=== PATIENT | female | born 1935 | race American Indian/Alaskan Native ===

== ENCOUNTER 2016-06-10 19:20 | Inpatient (IN) | payer MEDICARE, OTHER ==
[2016-06-06 19:28] VITALS: BMI 25.2
--- NOTE | 2016-06-10 21:00 | CP.PCM.HP ---
History of Present Illness - History of Present Illness History of Present Illness: CC: falls, gait abnomrality HPI: 80 year old female with PMH CVA, HTN, DMII, hypothyroidism, diverticulitis who is being admitted to acute rehab for frequent falls, and LLE weakness; LLE weakness has been chronic after CVA last year. She was admitted to [facility] 4 days ago for L leg weakness, after she had a fall in her bathtub. No head trauma, no LOC.. She had been having increased difficulty in walking as well falls for the past several weeks. She did not have any new focal neuro deficits. CT showed old infarcts, but no acute intracranial abnormality. Hematology oncology was also consulted for 2 lytic lesions incidentally found on Chest CT- metastatic disease ruled out with MRI and bone scans. Pt was also given Rocephin for UTI. Pt for acute rehab for further PT OT. Patient has no c/ c today. 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 4/5 LUE. Psych: normal mood, normal affect Present on Admission - Present on Admission Any Indicators Present on Admission: No Past Patient History - Infectious Disease Hx of Infectious Diseases: None - Tetanus Immunizations Tetanus Immunization: Unknown - Past Medical History & Family History Past Medical History?: Yes - Past Social History Smoking Status: Former Smoker - CARDIAC Hx Hypertension: Yes - PULMONARY Hx Respiratory Disorders: No - NEUROLOGICAL HX Cerebrovascular Accident: Yes - HEENT Other/Comment: Reading glasses - RENAL Hx Chronic Kidney Disease: No - ENDOCRINE/METABOLIC Hx Diabetes Mellitus Type 2: Yes Hx Hypothyroidism: Yes - HEMATOLOGICAL/ONCOLOGICAL Hx Blood Transfusions: No Hx Blood Transfusion Reaction: No - INTEGUMENTARY Hx Dermatological Problems: No - MUSCULOSKELETAL/RHEUMATOLOGICAL Hx Musculoskeletal Disorders: No Hx Falls: Yes - GASTROINTESTINAL Hx Gastrointestinal Disorders: Yes Hx Diverticulitis: Yes (diverticulosis) Other/Comment: bezoid - GENITOURINARY/GYNECOLOGICAL Hx Genitourinary Disorders: No - PSYCHIATRIC Hx Psychophysiologic Disorder: No Hx Substance Use: No - SURGICAL HISTORY Hx Surgeries: Yes - ANESTHESIA Hx Anesthesia: Yes Hx Anesthesia Reactions: No Hx Malignant Hyperthermia: No Meds Allergies/Adverse Reactions: Allergies Allergy/AdvReac Type Severity Reaction Status Date / Time lansoprazole [From Prevacid] Allergy RASH Verified 10/08/15 15:49 omeprazole Allergy URTICARIA Verified 10/08/15 15:49 Results - Imaging and Cardiology CT scan - chest Status: Report reviewed by me (Chest CT 06/07/16 : centrilobular emphysema, two partially imaged lytic lesions noted within the right scapula/glenoid, grossly stable, small hiatal hernia, nonobstructing tiny bilateral renal calculi) MRI - abdomen Status: Report reviewed by me (MRI shoulder w/o contrast 06/08/16 well circumscribed cystic lesion in the bony glenoid. 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 Specifically no nuclear medicine correlate to findings on recent cross- sectional imaging studies. ) Assessment & Plan (1) Frequent falls Assessment and Plan: This is a 80 y/o female with multiple chronic conditions and chronic LLE weakness from prior CVA which appears to be resulting in weakness and gait abnormality. Frequent falls/gait abn/ S/P CVA last year -- no acut CVA, chronic weakness from prior CVA Aggrenox 1 tab PO BID for Plavix pt was getting in [place] Neuro consult Dr. Ivone De Jesus Statin for stroke prevention Simvastatin 20 mg po daily PT/OT consult UTI Urine Cultures + EColi sensitive to Cipro during admission Cipro PO for 9 more days Hypertension Continue Nifedipine 30 mg po daily Continue Enalapril 5 mg po daily Diabetes Mellitus Continue Repaglinide 2 mg PO TID Continue Metformin 1000 mg PO BID Accuchecks ACHS, SSI Diabetic 2 mg Na diet Hypothyroidism Continue levothyroixine 25 mcg PO daily Dementia? Parkinsons? Continue Amatadine 100 mg PO BID Continue Primidone 50 mg po HS DVT PPx -- SQ Lovenox Status: Acute (2) CVA (cerebral vascular accident) Status: Acute (3) DM2 (diabetes mellitus, type 2) Status: Chronic (4) HTN (hypertension) Status: Chronic (5) Hypothyroid Status: Chronic (6) Dementia Status: Acute (7) DVT prophylaxis Status: Acute
[2016-06-10] MEDS: Insulin Lispro (humaLOG) 100 Units/ml Inj SC SCH (22:55)
[2016-06-11] MEDS: Levothyroxine 25 MCG TAB PO SCH (06:19)
[2016-06-11] MEDS: Insulin Lispro (humaLOG) 100 Units/ml Inj SC SCH ×4 (06:41→21:33)
[2016-06-11] MEDS: Lactobacillus Acidophilus 500 MU Cap PO SCH ×2 (10:04→16:58)
[2016-06-11] MEDS: Enoxaparin 40 mg Syringe SC SCH (10:06)
[2016-06-11] MEDS: Calcium-Vit D 250 mg-125 Units Tab UD PO SCH (10:07)
[2016-06-11] MEDS: NIFEdipine 30 mg ER Tab PO SCH (10:08)
--- NOTE | 2016-06-11 13:45 | PSY.TMCNF ---
Nursing - Vital Signs Vital Signs (Last 8 hours): Vital Signs 06/11/16 06/11/16 06/11/16 10:00 10:08 10:09 Temperature 97.5 F L Pulse Rate 65 65 65 Respiratory 22 Rate Blood Pressure 137/51 L 137/51 L 137/51 L O2 Sat by Pulse 97 Oximetry 06/11/16 12:20 Temperature 97.5 F L Pulse Rate 65 Respiratory 22 Rate Blood Pressure 137/51 L O2 Sat by Pulse Oximetry Pain: 0 - Precautions: Precautions: Fall Prevention - Medications/Other Issues Comment: n/v - Consults Comment: Dr. Pimentel - Toileting Toileting: Dependent - Bladder Management Bladder Pattern: Incontinent Voiding Method: Bedpan - Bowel Management Bowel Pattern: Constipated Bowel Management: Moderate Assistance - Transfers Transfers: Moderate Assistance - ADL's ADL's: Moderate Assistance - Pain Management Comments: Denies pain - Patient/Family Teaching Comments: Safety - Goals/Time Frame Comments: Per IPOC Physical Therapy - Bed Mobility Bed Mobility: Not Tested - Pain Management Techniques: Inactivity Occupational Therapy - Arousal/Attention/Orientation Patient Orientation: Person, Place, Time, Appropriate to Age, Appropriate to Situation - ADL/IADL Self Feeding: Supervision Grooming: Supervision Dressing-Lower Extremity: Maximum Assistance - Pain Alleviating Techniques: Inactivity Nutrition - Current Diet Current Diet/ Supplement/ Feedings: Moderate consistent CHO, 2 gm Na diet - Appetite Percent Meal Consumed: Less than 25% - Comments Comments: Safety - Assessment/Goals/Time Frame Assessment/Goals/Time Frame: n/v - Provider Provider: Chey Urban MS, RD Rehabilitation Plan - Discharge Plan Discharge to: Home (supportive family)
--- NOTE | 2016-06-11 13:46 | CP.PCM.CON ---
History of Present Illness - History of Present Illness History of Present Illness: Dr Pimentel PMR consultation on Hermelinda Prasad, born 1935, who has been admitted again to [facility] for acute inpatient rehabilitation. [place] [facility] [place] Review of Systems - Constitutional Constitutional: Fatigue. absent: Chills, Excessive Sweating - Cardiovascular Cardiovascular: absent: Chest Pain at Rest - Respiratory Respiratory: absent: Hemoptysis, Dyspnea on Exertion - Gastrointestinal Gastrointestinal: absent: Bloating - Integumentary Integumentary: absent: Bleeding Lesions - Neurological Neurological: absent: Abnormal Movements, Abnormal Speech, Convulsions - Psychiatric Psychiatric: Anxiety Past Patient History - Infectious Disease Hx of Infectious Diseases: None - Tetanus Immunizations Tetanus Immunization: Unknown - Past Medical History & Family History Past Medical History?: Yes - Past Social History Smoking Status: Former Smoker Home Situation {Lives}: Alone (daughter lives in the building) - CARDIAC Hx Hypertension: Yes - PULMONARY Hx Respiratory Disorders: No - NEUROLOGICAL HX Cerebrovascular Accident: Yes - HEENT Other/Comment: Reading glasses - RENAL Hx Chronic Kidney Disease: No - ENDOCRINE/METABOLIC Hx Diabetes Mellitus Type 2: Yes Hx Hypothyroidism: Yes - HEMATOLOGICAL/ONCOLOGICAL Hx Blood Transfusions: No Hx Blood Transfusion Reaction: No - INTEGUMENTARY Hx Dermatological Problems: No - MUSCULOSKELETAL/RHEUMATOLOGICAL Hx Musculoskeletal Disorders: No Hx Falls: Yes - GASTROINTESTINAL Hx Gastrointestinal Disorders: Yes Hx Diverticulitis: Yes (diverticulosis) Other/Comment: bezoid - GENITOURINARY/GYNECOLOGICAL Hx Genitourinary Disorders: No - PSYCHIATRIC Hx Psychophysiologic Disorder: No Hx Substance Use: No - SURGICAL HISTORY Hx Surgeries: Yes - ANESTHESIA Hx Anesthesia: Yes Hx Anesthesia Reactions: No Hx Malignant Hyperthermia: No Meds Allergies/Adverse Reactions: Allergies Allergy/AdvReac Type Severity Reaction Status Date / Time lansoprazole [From Prevacid] Allergy RASH Verified 10/08/15 15:49 omeprazole Allergy URTICARIA Verified 10/08/15 15:49 - Medications Medications: Current Medications Amantadine HCl (Amantadine 100 Mg Cap) 100 mg PO BID [facility] Last Admin: 06/11/16 10:05 Dose: 100 mg Atorvastatin Calcium (Lipitor) 10 mg PO HS [facility] Calcium/Vitamin D (Oscal-D 250 Mg-125 Units Tab) 2 tab PO DAILY [facility] Last Admin: 06/11/16 10:07 Dose: 2 tab Ciprofloxacin (Cipro) 500 mg PO Q12@0900,2100 [facility] Last Admin: 06/11/16 10:05 Dose: 500 mg Clopidogrel Bisulfate (Plavix) 75 mg PO DAILY [facility] Last Admin: 06/11/16 10:08 Dose: 75 mg Docusate Sodium (Colace) 100 mg PO BID [facility] Last Admin: 06/11/16 10:05 Dose: 100 mg Enoxaparin Sodium (Lovenox) 40 mg SC DAILY [facility] PRN Reason: Protocol Last Admin: 06/11/16 10:06 Dose: 40 mg Insulin Human Lispro (Humalog) 0 units SC [facility] PRN Reason: Protocol Last Admin: 06/11/16 12:40 Dose: 1 unit Lactobacillus Acidophilus (Bacid Acidophilus) 1 cap PO BID [facility] Last Admin: 06/11/16 10:04 Dose: 1 cap Levothyroxine Sodium (Synthroid) 25 mcg PO DAILY@0630 [facility] Last Admin: 06/11/16 06:19 Dose: 25 mcg Lisinopril (Zestril) 20 mg PO DAILY [facility] Last Admin: 06/11/16 10:09 Dose: 20 mg Metformin HCl (Glucophage) 1,000 mg PO BID [facility] Last Admin: 06/11/16 10:06 Dose: 1,000 mg Nifedipine (Procardia Xl) 30 mg PO DAILY [facility] Last Admin: 06/11/16 10:08 Dose: 30 mg Ondansetron HCl (Zofran Tab) 4 mg PO Q6 PRN PRN Reason: Nausea/Vomiting Last Admin: 06/11/16 06:40 Dose: 4 mg Primidone (Mysoline) 50 mg PO HS [facility] Last Admin: 06/10/16 22:53 Dose: 50 mg Repaglinide (Prandin) 2 mg PO DIN [facility] Physical Exam - Constitutional Appears: Non-toxic, No Acute Distress - Head Exam Head Exam: ATRAUMATIC, NORMAL INSPECTION, NORMOCEPHALIC - Eye Exam Eye Exam: EOMI, Normal appearance - ENT Exam ENT Exam: Mucous Membranes Moist - Respiratory Exam Respiratory Exam: NORMAL BREATHING PATTERN - GI/Abdominal Exam GI & Abdominal Exam: absent: Distended Results - Vital Signs Recent Vital Signs: Last Vital Signs Temp 97.5 F L 06/11/16 12:20 Pulse 65 06/11/16 12:20 Resp 22 06/11/16 12:20 BP 137/51 L 06/11/16 12:20 Pulse Ox 97 06/11/16 10:00 - Labs Labs: Laboratory Results - last 24 hr 06/11/16 06/11/16 06:07 12:05 POC Glucose (mg/dL) 108 165 H Assessment & Plan - Assessment and Plan (Free Text) Assessment: Patient with left AFO some left shoulder pain mild restricted ROM baseline had been ambulating with an assistive device now with combination of fear and decreased gait will need PT/OT and rec to help increase functional independence impairment code 16
--- NOTE | 2016-06-11 14:32 | CP.PCM.PN ---
Subjective - Date & Time of Evaluation Date of Evaluation: 06/11/16 Time of Evaluation: 14:31 - Subjective Subjective: debility Objective - Vital Signs/Intake and Output Vital Signs (last 24 hours): Temp Pulse Resp BP Pulse Ox 97.5 F L 65 22 137/51 L 97 06/11/16 12:20 06/11/16 12:20 06/11/16 12:20 06/11/16 12:20 06/11/16 10:00 - Medications Medications: Current Medications Amantadine HCl (Amantadine 100 Mg Cap) 100 mg PO BID [facility] Last Admin: 06/11/16 10:05 Dose: 100 mg Atorvastatin Calcium (Lipitor) 10 mg PO [facility] Calcium/Vitamin D (Oscal-D 250 Mg-125 Units Tab) 2 tab PO DAILY [facility] Last Admin: 06/11/16 10:07 Dose: 2 tab Ciprofloxacin (Cipro) 500 mg PO Q12@0900,2100 [facility] Last Admin: 06/11/16 10:05 Dose: 500 mg Clopidogrel Bisulfate (Plavix) 75 mg PO DAILY [facility] Last Admin: 06/11/16 10:08 Dose: 75 mg Docusate Sodium (Colace) 100 mg PO BID [facility] Last Admin: 06/11/16 10:05 Dose: 100 mg Enoxaparin Sodium (Lovenox) 40 mg SC DAILY [facility] PRN Reason: Protocol Last Admin: 06/11/16 10:06 Dose: 40 mg Insulin Human Lispro (Humalog) 0 units SC ACHS [facility] PRN Reason: Protocol Last Admin: 06/11/16 12:40 Dose: 1 unit Lactobacillus Acidophilus (Bacid Acidophilus) 1 cap PO BID [facility] Last Admin: 06/11/16 10:04 Dose: 1 cap Levothyroxine Sodium (Synthroid) 25 mcg PO DAILY@0630 [facility] Last Admin: 06/11/16 06:19 Dose: 25 mcg Lisinopril (Zestril) 20 mg PO DAILY [facility] Last Admin: 06/11/16 10:09 Dose: 20 mg Metformin HCl (Glucophage) 1,000 mg PO BID [facility] Last Admin: 06/11/16 10:06 Dose: 1,000 mg Nifedipine (Procardia Xl) 30 mg PO DAILY [facility] Last Admin: 06/11/16 10:08 Dose: 30 mg Ondansetron HCl (Zofran Tab) 4 mg PO Q6 PRN PRN Reason: Nausea/Vomiting Last Admin: 06/11/16 06:40 Dose: 4 mg Primidone (Mysoline) 50 mg PO HS [facility] Last Admin: 06/10/16 22:53 Dose: 50 mg Repaglinide (Prandin) 2 mg PO DIN [facility] Overall Plan of Care - Overall Plan of Care Rehab Impairment: Mobility, Gait, Balance, Coordination Etiologic Diagnosis: Cerebrovascular Accident Rehab/Medical Prognosis: Fair - Anticipated Interventions Physical Therapy:: Yes Occupational Therapy:: Yes Speech Therapy:: No Recreational Therapy:: Yes - Therapy Goals Bed Mobility: Contact Guard Ambulation: Contact Guard Functional Positional Changes:: Contact Guard - Discharge Plan Identification of Barriers to Discharge: Home Situation Discharge Destination: Home
[2016-06-12] MEDS: Levothyroxine 25 MCG TAB PO SCH (07:00)
[2016-06-12] MEDS: Insulin Lispro (humaLOG) 100 Units/ml Inj SC SCH ×3 (07:03→17:49)
[2016-06-12 07:18] LABS: HEMATOCRIT 31.6 % (34.0-47.0); MEAN CELL VOLUME 77.6 fl (81.0-99.0); MEAN CORPUSCULAR HEMOGLOBIN 24.8 pg (27.0-31.0); MEAN CORPUSCULAR HGB CONC 31.9 g/dL (33.0-37.0); RED CELL DISTRIBUTION WIDTH 16.2 % (11.5-14.5); WHITE BLOOD COUNT 7.3 K/uL (4.8-10.8)
[2016-06-12] MEDS: Lactobacillus Acidophilus 500 MU Cap PO SCH ×2 (09:01→17:50)
[2016-06-12] MEDS: Enoxaparin 40 mg Syringe SC SCH (09:03)
[2016-06-12] MEDS: Calcium-Vit D 250 mg-125 Units Tab UD PO SCH (09:03)
[2016-06-12] MEDS: NIFEdipine 30 mg ER Tab PO SCH (09:04)
--- NOTE | 2016-06-12 11:41 | CP.PCM.PN ---
Subjective - Date & Time of Evaluation Date of Evaluation: 06/12/16 Time of Evaluation: 15:07 - Subjective Subjective: pt tolerating PT well +nausea and vomiting patient to stop cipro and start rocephin no urinary sx no cp no dyspnea vss nad Objective - Vital Signs/Intake and Output Vital Signs (last 24 hours): Temp Pulse Resp BP Pulse Ox 98.0 F 69 19 142/66 96 06/12/16 08:42 06/12/16 09:04 06/12/16 08:42 06/12/16 09:04 06/12/16 08:42 GEN: WDWN, alert, cooperative HEENT: NCAT, PERRL, EOMI Neck: supple, no lymphadenopathy CARDIO: +S1S2, RRR, NO M/R/G LUNG: CTAB, NO W/R/R ABD: soft, NT, ND, no masses, no HSM EXT: no edema, pedal pulses Neuro: AAOx3, L sided weakness 3-/5 of LLE. 4/5 LUE. Psych: normal mood, normal affect - Medications Medications: Current Medications Amantadine HCl (Amantadine 100 Mg Cap) 100 mg PO BID [facility] Last Admin: 06/12/16 09:01 Dose: 100 mg Atorvastatin Calcium (Lipitor) 10 mg PO HS [facility] Last Admin: 06/11/16 21:33 Dose: 10 mg Calcium/Vitamin D (Oscal-D 250 Mg-125 Units Tab) 2 tab PO DAILY [facility] Last Admin: 06/12/16 09:03 Dose: 2 tab Clopidogrel Bisulfate (Plavix) 75 mg PO DAILY [facility] Last Admin: 06/12/16 09:04 Dose: 75 mg Docusate Sodium (Colace) 100 mg PO BID [facility] Last Admin: 06/12/16 09:02 Dose: 100 mg Enoxaparin Sodium (Lovenox) 40 mg SC DAILY [facility] PRN Reason: Protocol Last Admin: 06/12/16 09:03 Dose: 40 mg Ceftriaxone Sodium 1,000 mg/ (PED IV SYRINGE) 0 mls @ 100 mls/hr IVPB DAILY [facility] Insulin Human Lispro (Humalog) 0 units SC 0630,1630 [facility] PRN Reason: Protocol Lactobacillus Acidophilus (Bacid Acidophilus) 1 cap PO BID [facility] Last Admin: 06/12/16 09:01 Dose: 1 cap Levothyroxine Sodium (Synthroid) 25 mcg PO DAILY@0630 [facility] Last Admin: 06/12/16 07:00 Dose: 25 mcg Lisinopril (Zestril) 20 mg PO DAILY [facility] Last Admin: 06/12/16 09:04 Dose: 20 mg Metformin HCl (Glucophage) 1,000 mg PO BID [facility] Last Admin: 06/12/16 09:03 Dose: 1,000 mg Nifedipine (Procardia Xl) 30 mg PO DAILY [facility] Last Admin: 06/12/16 09:04 Dose: 30 mg Ondansetron HCl (Zofran Tab) 4 mg PO Q6 PRN PRN Reason: Nausea/Vomiting Last Admin: 06/12/16 09:04 Dose: 4 mg Primidone (Mysoline) 50 mg PO HS [facility] Last Admin: 06/11/16 21:33 Dose: 50 mg Repaglinide (Prandin) 2 mg PO DIN [facility] Last Admin: 06/11/16 16:59 Dose: 2 mg - Labs Labs: 06/12/16 07:02 Assessment and Plan - Assessment and Plan (Free Text) Assessment: This is a 80 y/o female with multiple chronic conditions and chronic LLE weakness from prior CVA which appears to be resulting in weakness and gait abnormality. Frequent falls/gait abn/ S/P CVA last year -- no acut CVA, chronic weakness from prior CVA cont current management Aggrenox 1 tab PO BID for Plavix pt was getting in [place] Neuro consult Dr. Ivone De Jesus Statin for stroke prevention Simvastatin 20 mg po daily PT/OT consult UTI Urine Cultures + EColi sensitive to Cipro during admission Cipro PO for 9 more days-- CHANGE TO ROCEPHIN 5 DAYS Hypertension Continue Nifedipine 30 mg po daily Continue Enalapril 5 mg po daily Diabetes Mellitus Continue Repaglinide 2 mg PO TID Continue Metformin 1000 mg PO BID Accuchecks ACHS, SSI Diabetic 2 mg Na diet Hypothyroidism Continue levothyroixine 25 mcg PO daily Dementia? Parkinsons? Continue Amatadine 100 mg PO BID Continue Primidone 50 mg po HS DVT PPx -- SQ Lovenox
[2016-06-12] MEDS ORDERED: cefTRIAXone (Rocephin) 1 gm Inj IM ONE (17:37)
[2016-06-13] MEDS: Insulin Lispro (humaLOG) 100 Units/ml Inj SC SCH ×2 (06:54→17:14)
[2016-06-13] MEDS: Levothyroxine 25 MCG TAB PO SCH (06:54)
[2016-06-13] MEDS: Lactobacillus Acidophilus 500 MU Cap PO SCH ×2 (08:27→17:58)
[2016-06-13] MEDS: Enoxaparin 40 mg Syringe SC SCH (08:28)
[2016-06-13] MEDS: Calcium-Vit D 250 mg-125 Units Tab UD PO SCH (08:29)
[2016-06-13] MEDS: NIFEdipine 30 mg ER Tab PO SCH (08:29)
[2016-06-13] MEDS ORDERED: cefTRIAXone (Rocephin) 1 gm Inj IM SCH (09:00)
[2016-06-14] MEDS: Insulin Lispro (humaLOG) 100 Units/ml Inj SC SCH ×2 (06:30→16:39)
[2016-06-14] MEDS: Levothyroxine 25 MCG TAB PO SCH (07:06)
--- NOTE | 2016-06-14 08:01 | CP.PCM.CON ---
History of Present Illness - History of Present Illness History of Present Illness: pt is a 80 year old female admitted to [facility] and referred to the grant writer for [facility]. Med history postive for a fall, and CVA's in the past. See medical record for additional medical history and medications. Social History: pt lives in a two family home with her daughter upstairs. She was for 50+ years and then . She had ten children. One and she reported positive relationships with children remaining and grandchildren. Children assist with cleaning, cooking and shopping. Ed.Voc: pt raised in [place], pt graduated HS. 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 Pt denied a psych history and is negative for a history of alc/sub abuse. Pt spoke of attending a senior club and adventism prior to admission though struggleing with depression and dysphoria due to multiple losses of friends and restrction in lifestyle. Strategies introduced to reduce distress/depression. MSE: pt alert, oriented x2, relevant/coherent, no psychosis, affect constricted , mood dysphoric, no si no hi ideation. Dx: Dysthymia Plan: Continued Supportive therapy Past Patient History - Infectious Disease Hx of Infectious Diseases: None - Tetanus Immunizations Tetanus Immunization: Unknown - Past Medical History & Family History Past Medical History?: Yes - Past Social History Smoking Status: Former Smoker Home Situation {Lives}: Alone (daughter lives in the building) - CARDIAC Hx Hypertension: Yes - PULMONARY Hx Respiratory Disorders: No - NEUROLOGICAL HX Cerebrovascular Accident: Yes - HEENT Other/Comment: Reading glasses - RENAL Hx Chronic Kidney Disease: No - ENDOCRINE/METABOLIC Hx Diabetes Mellitus Type 2: Yes - HEMATOLOGICAL/ONCOLOGICAL Hx Blood Transfusions: No Hx Blood Transfusion Reaction: No - INTEGUMENTARY Hx Dermatological Problems: No - MUSCULOSKELETAL/RHEUMATOLOGICAL Hx Musculoskeletal Disorders: No Hx Falls: Yes - GASTROINTESTINAL Hx Gastrointestinal Disorders: Yes Hx Diverticulitis: Yes (diverticulosis) Other/Comment: bezoid - GENITOURINARY/GYNECOLOGICAL Hx Genitourinary Disorders: No - PSYCHIATRIC Hx Psychophysiologic Disorder: No Hx Substance Use: No - SURGICAL HISTORY Hx Surgeries: Yes - ANESTHESIA Hx Anesthesia: Yes Hx Anesthesia Reactions: No Hx Malignant Hyperthermia: No Meds Allergies/Adverse Reactions: Allergies Allergy/AdvReac Type Severity Reaction Status Date / Time lansoprazole [From Prevacid] Allergy RASH Verified 10/08/15 15:49 omeprazole Allergy URTICARIA Verified 10/08/15 15:49 - Medications Medications: Current Medications Amantadine HCl (Amantadine 100 Mg Cap) 100 mg PO BID [facility] Last Admin: 06/13/16 17:58 Dose: 100 mg Atorvastatin Calcium (Lipitor) 10 mg PO HS [facility] Last Admin: 06/13/16 22:56 Dose: 10 mg Calcium/Vitamin D (Oscal-D 250 Mg-125 Units Tab) 2 tab PO DAILY [facility] Last Admin: 06/13/16 08:29 Dose: 2 tab Clopidogrel Bisulfate (Plavix) 75 mg PO DAILY [facility] Last Admin: 06/13/16 08:28 Dose: 75 mg Docusate Sodium (Colace) 100 mg PO BID [facility] Last Admin: 06/13/16 17:09 Dose: 100 mg Enoxaparin Sodium (Lovenox) 40 mg SC DAILY [facility] PRN Reason: Protocol Last Admin: 06/13/16 08:28 Dose: 40 mg Ceftriaxone Sodium 1 gm/ (Sodium Chloride) 100 mls @ 100 mls/hr IVPB 1900 [facility] Stop: 06/18/16 19:01 Last Admin: 06/13/16 19:02 Dose: 100 mls/hr Insulin Human Lispro (Humalog) 0 units SC 0630,1630 [facility] PRN Reason: Protocol Last Admin: 06/14/16 06:30 Dose: Not Given Lactobacillus Acidophilus (Bacid Acidophilus) 1 cap PO BID [facility] Last Admin: 06/13/16 17:58 Dose: 1 cap Levothyroxine Sodium (Synthroid) 25 mcg PO DAILY@0630 [facility] Last Admin: 06/14/16 07:06 Dose: 25 mcg Lisinopril (Zestril) 20 mg PO DAILY [facility] Last Admin: 06/13/16 08:29 Dose: 20 mg Metformin HCl (Glucophage) 1,000 mg PO BID [facility] Last Admin: 06/13/16 17:08 Dose: 1,000 mg Metoclopramide HCl (Reglan) 10 mg IVP Q6 PRN PRN Reason: Nausea/Vomiting Last Admin: 06/13/16 11:00 Dose: 10 mg Nifedipine (Procardia Xl) 30 mg PO DAILY [facility] Last Admin: 06/13/16 08:29 Dose: 30 mg Ondansetron HCl (Zofran Tab) 4 mg PO Q6 PRN PRN Reason: Nausea/Vomiting Last Admin: 06/13/16 08:29 Dose: 4 mg Primidone (Mysoline) 50 mg PO HS [facility] Last Admin: 06/13/16 22:56 Dose: 50 mg Repaglinide (Prandin) 2 mg PO DIN [facility] Last Admin: 06/13/16 17:08 Dose: 2 mg Results - Vital Signs Recent Vital Signs: Last Vital Signs Temp 97.5 F L 06/13/16 19:57 Pulse 71 06/13/16 19:57 Resp 20 06/13/16 19:57 BP 145/63 06/13/16 19:57 Pulse Ox 94 L 06/13/16 19:57 - Labs Result Diagrams: 06/12/16 07:02 Labs: Laboratory Results - last 24 hr 06/13/16 06/13/16 06/13/16 11:54 15:51 20:54 POC Glucose (mg/dL) 137 H 182 H 110 06/14/16 06:09 POC Glucose (mg/dL) 73
[2016-06-14] MEDS: Enoxaparin 40 mg Syringe SC SCH (08:47)
[2016-06-14] MEDS: Calcium-Vit D 250 mg-125 Units Tab UD PO SCH (08:48)
[2016-06-14] MEDS: Lactobacillus Acidophilus 500 MU Cap PO SCH ×2 (08:50→18:14)
[2016-06-14] MEDS: NIFEdipine 30 mg ER Tab PO SCH (10:00)
--- NOTE | 2016-06-14 11:07 | CP.PCM.PN ---
Subjective - Date & Time of Evaluation Date of Evaluation: 06/14/16 Time of Evaluation: 10:00 - Subjective Subjective: Pt seen and examined. Complained of nausea and vomiting since 4 days ago. Thought that new medications might be the culprit since one of them is making her really weak and tired. Objective - Vital Signs/Intake and Output Vital Signs (last 24 hours): Temp Pulse Resp BP Pulse Ox 97.5 F L 86 20 150/70 94 L 06/13/16 19:57 06/14/16 10:00 06/13/16 19:57 06/14/16 10:00 06/13/16 19:57 - Medications Medications: Current Medications Amantadine HCl (Amantadine 100 Mg Cap) 100 mg PO BID [facility] Last Admin: 06/14/16 08:47 Dose: 100 mg Atorvastatin Calcium (Lipitor) 10 mg PO HS [facility] Last Admin: 06/13/16 22:56 Dose: 10 mg Calcium/Vitamin D (Oscal-D 250 Mg-125 Units Tab) 2 tab PO DAILY [facility] Last Admin: 06/14/16 08:48 Dose: 2 tab Clopidogrel Bisulfate (Plavix) 75 mg PO DAILY [facility] Last Admin: 06/14/16 08:50 Dose: 75 mg Docusate Sodium (Colace) 100 mg PO BID [facility] Last Admin: 06/14/16 08:47 Dose: 100 mg Enoxaparin Sodium (Lovenox) 40 mg SC DAILY [facility] PRN Reason: Protocol Last Admin: 06/14/16 08:47 Dose: 40 mg Ceftriaxone Sodium 1 gm/ (Sodium Chloride) 100 mls @ 100 mls/hr IVPB 1900 [facility] Stop: 06/18/16 19:01 Last Admin: 06/13/16 19:02 Dose: 100 mls/hr Insulin Human Lispro (Humalog) 0 units SC 0630,1630 [facility] PRN Reason: Protocol Last Admin: 06/14/16 06:30 Dose: Not Given Lactobacillus Acidophilus (Bacid Acidophilus) 1 cap PO BID [facility] Last Admin: 06/14/16 08:50 Dose: 1 cap Levothyroxine Sodium (Synthroid) 25 mcg PO DAILY@0630 [facility] Last Admin: 06/14/16 07:06 Dose: 25 mcg Lisinopril (Zestril) 20 mg PO DAILY [facility] Last Admin: 06/14/16 08:46 Dose: 20 mg Metformin HCl (Glucophage) 1,000 mg PO BID [facility] Last Admin: 06/14/16 08:47 Dose: 1,000 mg Metoclopramide HCl (Reglan) 10 mg IVP Q6 PRN PRN Reason: Nausea/Vomiting Last Admin: 06/14/16 10:19 Dose: 10 mg Nifedipine (Procardia Xl) 30 mg PO DAILY [facility] Last Admin: 06/14/16 10:00 Dose: 30 mg Ondansetron HCl (Zofran Tab) 4 mg PO Q6 PRN PRN Reason: Nausea/Vomiting Last Admin: 06/14/16 08:23 Dose: 4 mg Repaglinide (Prandin) 2 mg PO DIN [facility] Last Admin: 06/13/16 17:08 Dose: 2 mg - Labs Labs: 06/12/16 07:02 - Constitutional Appears: No Acute Distress - Head Exam Head Exam: ATRAUMATIC - Eye Exam Eye Exam: Normal appearance - ENT Exam ENT Exam: Mucous Membranes Moist - Neck Exam Neck Exam: absent: Meningismus - Respiratory Exam Respiratory Exam: absent: Rhonchi, Wheezes, Respiratory Distress - Cardiovascular Exam Cardiovascular Exam: REGULAR RHYTHM, +S1, +S2 - GI/Abdominal Exam GI & Abdominal Exam: Soft. absent: Tenderness - Rectal Exam Rectal Exam: Deferred - Neurological Exam Neurological Exam: Alert, Oriented x3 - Psychiatric Exam Psychiatric exam: Normal Affect - Skin Skin Exam: Dry, Intact Assessment and Plan - Assessment and Plan (Free Text) Assessment: 80 yo female with history of DM2, Hypothyroidism, HTN and previous CVA with chronic LLE weakness admitted at [facility] because of a fall in the bathtub. 1. S/P CVA with chronic LLE and frequent falls continue PT/OT on Plavix, Lipitor and BP medications 2. UTI Urine Cultures positive for EColi (06/07/2016) sensitive to Cipro Cipro switched to Rocephin on 06/12 although the VIN of Cipro is much lower than Rocephin will continue with Rocephin until 06/16 since it is not a good idea to switch back and forth with antibiotics 3. Hypertension BP stable Continue Nifedipine 30 mg po daily Continue Enalapril 5 mg po daily 4. Diabetes Mellitus BS controlled Continue Repaglinide 2 mg PO TID Continue Metformin 1000 mg PO BID 5. Hypothyroidism Continue Levothyroixine 25 mcg PO daily 6. Essential Tremors Continue Amatadine 100 mg PO BID 7. Nausea/Vomiting probably drug related DC Primidone
[2016-06-14 12:06] LABS: HEMATOCRIT 33.7 % (34.0-47.0); MEAN CELL VOLUME 77.1 fl (81.0-99.0); MEAN CORPUSCULAR HEMOGLOBIN 24.6 pg (27.0-31.0); MEAN CORPUSCULAR HGB CONC 31.8 g/dL (33.0-37.0); RED CELL DISTRIBUTION WIDTH 16.1 % (11.5-14.5); WHITE BLOOD COUNT 8.4 K/uL (4.8-10.8)
[2016-06-14 12:15] LABS: BLOOD UREA NITROGEN 20 mg/dl (7-17); CALCIUM 9.6 mg/dL (8.4-10.2); CARBON DIOXIDE 26 mmol/L (22-30); CHLORIDE 96 mmol/L (98-107); GFR AFRICAN-AMERICAN > 60; GLUCOSE,RANDOM 141 mg/dL (65-105); POTASSIUM 4.2 MMOL/L (3.6-5.0); SODIUM 134 mmol/l (132-148)
--- NOTE | 2016-06-14 17:58 | CP.PCM.PN ---
Subjective - Date & Time of Evaluation Date of Evaluation: 06/14/16 Time of Evaluation: 17:57 - Subjective Subjective: Patient seen in room daughter was present denies chest pain denies fever or palpitations feels a little stronger trying in therapies Objective - Vital Signs/Intake and Output Vital Signs (last 24 hours): Temp Pulse Resp BP Pulse Ox 96.8 F L 80 20 140/68 99 06/14/16 16:15 06/14/16 16:15 06/14/16 16:15 06/14/16 16:15 06/14/16 16:15 - Medications Medications: Current Medications Amantadine HCl (Amantadine 100 Mg Cap) 100 mg PO BID [facility] Last Admin: 06/14/16 16:38 Dose: 100 mg Atorvastatin Calcium (Lipitor) 10 mg PO HS [facility] Last Admin: 06/13/16 22:56 Dose: 10 mg Calcium/Vitamin D (Oscal-D 250 Mg-125 Units Tab) 2 tab PO DAILY [facility] Last Admin: 06/14/16 08:48 Dose: 2 tab Clopidogrel Bisulfate (Plavix) 75 mg PO DAILY [facility] Last Admin: 06/14/16 08:50 Dose: 75 mg Docusate Sodium (Colace) 100 mg PO BID [facility] Last Admin: 06/14/16 16:38 Dose: 100 mg Enoxaparin Sodium (Lovenox) 40 mg SC DAILY [facility] PRN Reason: Protocol Last Admin: 06/14/16 08:47 Dose: 40 mg Ceftriaxone Sodium 1 gm/ (Sodium Chloride) 100 mls @ 100 mls/hr IVPB 1900 [facility] Stop: 06/18/16 19:01 Last Admin: 06/13/16 19:02 Dose: 100 mls/hr Insulin Human Lispro (Humalog) 0 units SC 0630,1630 [facility] PRN Reason: Protocol Last Admin: 06/14/16 16:39 Dose: Not Given Lactobacillus Acidophilus (Bacid Acidophilus) 1 cap PO BID [facility] Last Admin: 06/14/16 08:50 Dose: 1 cap Levothyroxine Sodium (Synthroid) 25 mcg PO DAILY@0630 [facility] Last Admin: 06/14/16 07:06 Dose: 25 mcg Lisinopril (Zestril) 20 mg PO DAILY [facility] Last Admin: 06/14/16 08:46 Dose: 20 mg Metformin HCl (Glucophage) 1,000 mg PO BID [facility] Last Admin: 06/14/16 16:38 Dose: 1,000 mg Metoclopramide HCl (Reglan) 10 mg IVP Q6 PRN PRN Reason: Nausea/Vomiting Last Admin: 06/14/16 10:19 Dose: 10 mg Nifedipine (Procardia Xl) 30 mg PO DAILY [facility] Last Admin: 06/14/16 10:00 Dose: 30 mg Ondansetron HCl (Zofran Tab) 4 mg PO Q6 PRN PRN Reason: Nausea/Vomiting Last Admin: 06/14/16 08:23 Dose: 4 mg Repaglinide (Prandin) 2 mg PO DIN [facility] Last Admin: 06/14/16 16:39 Dose: 2 mg - Labs Labs: 06/14/16 11:55 06/14/16 11:55
[2016-06-15] MEDS: Levothyroxine 25 MCG TAB PO SCH (05:58)
[2016-06-15] MEDS: Insulin Lispro (humaLOG) 100 Units/ml Inj SC SCH ×2 (05:59→16:23)
[2016-06-15] MEDS: Enoxaparin 40 mg Syringe SC SCH (08:10)
[2016-06-15] MEDS: NIFEdipine 30 mg ER Tab PO SCH (08:11)
[2016-06-15] MEDS: Calcium-Vit D 250 mg-125 Units Tab UD PO SCH (09:00)
[2016-06-15] MEDS: Lactobacillus Acidophilus 500 MU Cap PO SCH ×2 (10:00→16:18)
[2016-06-16] MEDS: Levothyroxine 25 MCG TAB PO SCH (06:33)
[2016-06-16] MEDS: Insulin Lispro (humaLOG) 100 Units/ml Inj SC SCH ×2 (06:43→16:42)
[2016-06-16] MEDS: Calcium-Vit D 250 mg-125 Units Tab UD PO SCH (08:28)
[2016-06-16] MEDS: NIFEdipine 30 mg ER Tab PO SCH (08:29)
[2016-06-16] MEDS: Lactobacillus Acidophilus 500 MU Cap PO SCH ×2 (08:32→16:41)
[2016-06-16] MEDS: Enoxaparin 40 mg Syringe SC SCH (08:32)
--- NOTE | 2016-06-16 18:01 | CP.PCM.CON ---
History of Present Illness - History of Present Illness History of Present Illness: 80 year old female seen at bedside concerning bilateral callouses. Pt was sitting comfortably in chair upon arrival. Pt reports isolated pain to lateral left foot plantar callous when she ambulates, she grades current pain level as a 2/4 when she tries to complete physical therapy. Pt sees a chemical educator on a routine outpatient basis for these callouses which are recurrent. Pt denies and acute overnight events. Pt denies recent f/c/n/v/cp/sob. Past Patient History - Infectious Disease Hx of Infectious Diseases: None - Tetanus Immunizations Tetanus Immunization: Unknown - Past Medical History & Family History Past Medical History?: Yes - Past Social History Smoking Status: Former Smoker Home Situation {Lives}: Alone (daughter lives in the building) - CARDIAC Hx Hypertension: Yes - PULMONARY Hx Respiratory Disorders: No - NEUROLOGICAL HX Cerebrovascular Accident: Yes - HEENT Other/Comment: Reading glasses - RENAL Hx Chronic Kidney Disease: No - ENDOCRINE/METABOLIC Hx Diabetes Mellitus Type 2: Yes - HEMATOLOGICAL/ONCOLOGICAL Hx Blood Transfusions: No Hx Blood Transfusion Reaction: No - INTEGUMENTARY Hx Dermatological Problems: No - MUSCULOSKELETAL/RHEUMATOLOGICAL Hx Musculoskeletal Disorders: No Hx Falls: Yes - GASTROINTESTINAL Hx Gastrointestinal Disorders: Yes Hx Diverticulitis: Yes (diverticulosis) Other/Comment: bezoid - GENITOURINARY/GYNECOLOGICAL Hx Genitourinary Disorders: No - PSYCHIATRIC Hx Psychophysiologic Disorder: No Hx Substance Use: No - SURGICAL HISTORY Hx Surgeries: Yes - ANESTHESIA Hx Anesthesia: Yes Hx Anesthesia Reactions: No Hx Malignant Hyperthermia: No Meds Allergies/Adverse Reactions: Allergies Allergy/AdvReac Type Severity Reaction Status Date / Time lansoprazole [From Prevacid] Allergy RASH Verified 10/08/15 15:49 omeprazole Allergy URTICARIA Verified 10/08/15 15:49 - Medications Medications: Current Medications Amantadine HCl (Amantadine 100 Mg Cap) 100 mg PO BID [facility] Last Admin: 06/16/16 16:41 Dose: 100 mg Atorvastatin Calcium (Lipitor) 10 mg PO [facility] Last Admin: 06/15/16 21:12 Dose: 10 mg Calcium/Vitamin D (Oscal-D 250 Mg-125 Units Tab) 2 tab PO DAILY [facility] Last Admin: 06/16/16 08:28 Dose: 2 tab Clopidogrel Bisulfate (Plavix) 75 mg PO DAILY [facility] Last Admin: 06/16/16 08:28 Dose: 75 mg Docusate Sodium (Colace) 100 mg PO BID [facility] Last Admin: 06/16/16 16:41 Dose: 100 mg Enoxaparin Sodium (Lovenox) 40 mg SC DAILY [facility] PRN Reason: Protocol Last Admin: 06/16/16 08:32 Dose: 40 mg Ceftriaxone Sodium 1 gm/ (Sodium Chloride) 100 mls @ 100 mls/hr IVPB 1900 [facility] Stop: 06/18/16 19:01 Last Admin: 06/15/16 18:05 Dose: 100 mls/hr Insulin Human Lispro (Humalog) 0 units SC 0630,1630 [facility] PRN Reason: Protocol Last Admin: 06/16/16 16:42 Dose: 1 unit Lactobacillus Acidophilus (Bacid Acidophilus) 1 cap PO BID [facility] Last Admin: 06/16/16 16:41 Dose: 1 cap Levothyroxine Sodium (Synthroid) 25 mcg PO DAILY@0630 [facility] Last Admin: 06/16/16 06:33 Dose: 25 mcg Lisinopril (Zestril) 20 mg PO DAILY [facility] Last Admin: 06/16/16 08:29 Dose: 20 mg Metformin HCl (Glucophage) 1,000 mg PO BID [facility] Last Admin: 06/16/16 16:41 Dose: 1,000 mg Metoclopramide HCl (Reglan) 10 mg IVP Q6 PRN PRN Reason: Nausea/Vomiting Last Admin: 06/16/16 12:28 Dose: 10 mg Nifedipine (Procardia Xl) 30 mg PO DAILY [facility] Last Admin: 06/16/16 08:29 Dose: 30 mg Ondansetron HCl (Zofran Tab) 4 mg PO Q6 PRN PRN Reason: Nausea/Vomiting Last Admin: 06/14/16 08:23 Dose: 4 mg Repaglinide (Prandin) 2 mg PO DIN [facility] Last Admin: 06/16/16 16:42 Dose: 2 mg Physical Exam - Constitutional Appears: Well, Non-toxic, No Acute Distress - Extremities Exam Additional comments: Lower extremity focused. VASC: DP and PT pulses are non-palpable. No edema noted to right lower extremity. Cap refill time to all digits less than 5 seconds. Temperature gradient runs warm to cold proximal to distal DERM: Diffuse hyperpeigmentation of pedal skin noted bilaterally. Tender hyperkeratotic lesion noted to distal tuft of left 3rd digit and planter aspect of left 5th metatarsal head. Bilateral dystrophic hallux nails. Nail's are noted to have Dionne lines. NEURO: Protective sensation grossly diminished. MUSCK: Pedal muscle strength graded 4/5 in 4 major pedal muscle groups. Pedal muscle tone is diminished. Hammertoe contracture noted to 2nf digits bilaterally , semi-reducible, bilaterally. Lateral hallux deviation noted bilaterally. 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 - Neurological Exam Neurological exam: Alert, Oriented x3 - Psychiatric Exam Psychiatric exam: Normal Affect, Normal Mood Results - Vital Signs Recent Vital Signs: Last Vital Signs Temp 98.4 F 06/16/16 16:08 Pulse 77 06/16/16 16:08 Resp 20 06/16/16 16:08 BP 124/57 L 06/16/16 16:08 Pulse Ox 97 06/16/16 16:08 - Labs Result Diagrams: 06/14/16 11:55 06/14/16 11:55 Labs: Laboratory Results - last 24 hr 06/16/16 06/16/16 06/16/16 05:41 06:36 15:59 POC Glucose (mg/dL) 63 L 102 174 H Assessment & Plan - Assessment and Plan (Free Text) Assessment: 56 year old female with 1) left foot hyperkeratotic plantar lesion 2) Peripheral artery disease. 3) 2nd digit hammertoes bilaterally. Plan: Patient seen and evaluated, discussed with attending Dr. Horton. Labs and vitals reviewed; afebrile -Aseptic sharp excisional debridement of hyperkeratotic lesions using #15 blade. Total debrided tissue is 1cm^2 of hyperkeratotic tissue down to the level of healthy epidermal tissue. -Pt is stable from podiatry standpoint. Thank you for allowing podiatry to partake in the care of this patient. - Date & Time Date: 06/16/16 Time: 16:55
[2016-06-17] MEDS: Levothyroxine 25 MCG TAB PO SCH (06:36)
[2016-06-17] MEDS: Insulin Lispro (humaLOG) 100 Units/ml Inj SC SCH ×2 (06:41→16:29)
[2016-06-17 07:09] LABS: HEMATOCRIT 34.7 % (34.0-47.0); MEAN CELL VOLUME 77.5 fl (81.0-99.0); MEAN CORPUSCULAR HEMOGLOBIN 24.5 pg (27.0-31.0); MEAN CORPUSCULAR HGB CONC 31.6 g/dL (33.0-37.0); RED CELL DISTRIBUTION WIDTH 16.4 % (11.5-14.5); WHITE BLOOD COUNT 7.8 K/uL (4.8-10.8)
[2016-06-17] MEDS: Enoxaparin 40 mg Syringe SC SCH (09:11)
[2016-06-17] MEDS: Lactobacillus Acidophilus 500 MU Cap PO SCH ×2 (09:11→16:28)
[2016-06-17] MEDS: Calcium-Vit D 250 mg-125 Units Tab UD PO SCH (09:12)
[2016-06-17] MEDS: NIFEdipine 30 mg ER Tab PO SCH (09:15)
--- NOTE | 2016-06-17 13:04 | CP.PCM.PN ---
Subjective - Date & Time of Evaluation Date of Evaluation: 06/17/16 Time of Evaluation: 13:45 - Subjective Subjective: Patient seen and evaluated during PT.Complains of generalized weakness , especially on the left side. Still with episodes of nausea and vomiting on and off.Hemodynamically stable, afebrile. No acute issues overnight. Participating with PT Objective - Vital Signs/Intake and Output Vital Signs (last 24 hours): Temp Pulse Resp BP Pulse Ox 97.6 F 83 21 140/75 98 06/17/16 09:38 06/17/16 09:38 06/17/16 09:38 06/17/16 09:38 06/17/16 09:38 - Medications Medications: Current Medications Amantadine HCl (Amantadine 100 Mg Cap) 100 mg PO BID [facility] Last Admin: 06/17/16 09:10 Dose: 100 mg Atorvastatin Calcium (Lipitor) 10 mg PO HS [facility] Last Admin: 06/16/16 21:17 Dose: 10 mg Calcium/Vitamin D (Oscal-D 250 Mg-125 Units Tab) 2 tab PO DAILY [facility] Last Admin: 06/17/16 09:12 Dose: 2 tab Clopidogrel Bisulfate (Plavix) 75 mg PO DAILY [facility] Last Admin: 06/17/16 09:14 Dose: 75 mg Docusate Sodium (Colace) 100 mg PO BID [facility] Last Admin: 06/17/16 09:11 Dose: 100 mg Enoxaparin Sodium (Lovenox) 40 mg SC DAILY [facility] PRN Reason: Protocol Last Admin: 06/17/16 09:11 Dose: 40 mg Insulin Human Lispro (Humalog) 0 units SC 0630,1630 [facility] PRN Reason: Protocol Last Admin: 06/17/16 06:41 Dose: Not Given Lactobacillus Acidophilus (Bacid Acidophilus) 1 cap PO BID [facility] Last Admin: 06/17/16 09:11 Dose: 1 cap Levothyroxine Sodium (Synthroid) 25 mcg PO DAILY@0630 [facility] Last Admin: 06/17/16 06:36 Dose: 25 mcg Lisinopril (Zestril) 20 mg PO DAILY [facility] Last Admin: 06/17/16 09:15 Dose: 20 mg Metformin HCl (Glucophage) 500 mg PO BID [facility] Metoclopramide HCl (Reglan) 10 mg PO TID PRN PRN Reason: Nausea/Vomiting Nifedipine (Procardia Xl) 30 mg PO DAILY [facility] Last Admin: 06/17/16 09:15 Dose: 30 mg Ondansetron HCl (Zofran Tab) 4 mg PO Q6 PRN PRN Reason: Nausea/Vomiting Last Admin: 06/17/16 09:24 Dose: 4 mg Repaglinide (Prandin) 2 mg PO DIN [facility] Last Admin: 06/16/16 16:42 Dose: 2 mg - Labs Labs: 06/17/16 05:40 06/14/16 11:55 - Constitutional Appears: Non-toxic, No Acute Distress - Head Exam Head Exam: ATRAUMATIC, NORMAL INSPECTION, NORMOCEPHALIC - Eye Exam Eye Exam: EOMI, Normal appearance, PERRL Pupil Exam: NORMAL ACCOMODATION - ENT Exam ENT Exam: Mucous Membranes Moist, Normal Exam - Neck Exam Neck Exam: Full ROM, Normal Inspection - Respiratory Exam Respiratory Exam: Clear to Ausculation Bilateral, NORMAL BREATHING PATTERN. absent: Rales, Rhonchi, Wheezes - Cardiovascular Exam Cardiovascular Exam: REGULAR RHYTHM, RRR, +S1, +S2. absent: JVD - GI/Abdominal Exam GI & Abdominal Exam: Soft, Normal Bowel Sounds. absent: Distended, Guarding, Tenderness, Rebound - Rectal Exam Rectal Exam: Deferred - Extremities Exam Extremities Exam: Full ROM, Normal Capillary Refill, Normal Inspection. absent : Calf Tenderness, Pedal Edema - Neurological Exam Neurological Exam: Alert, Awake, Oriented x3 Additional comments: left side weakness - Psychiatric Exam Psychiatric exam: Normal Affect - Skin Skin Exam: Dry, Intact, Normal Color, Warm Assessment and Plan - Assessment and Plan (Free Text) Assessment: 80 yo female with history of DM2, Hypothyroidism, HTN and previous CVA with chronic LLE weakness admitted at [facility] because of a fall in the bathtub. 1. S/P CVA with chronic LLE and frequent falls continue PT/OT on Plavix, Lipitor and BP medications 2. UTI Urine Cultures positive for E Coli (06/07/2016) sensitive to Cipro and Rocephin Finished full course with antibiotics 3. Hypertension BP stable Continue Nifedipine 30 mg po daily and Lisinopril 4. 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 Hypothyroidism Continue Levothyroixine 25 mcg PO daily 6. Essential Tremors Continue Amatadine 100 mg PO BID 7. Nausea/Vomiting probably drug related or related to gastroparesis DC Primidone started Reglan 10 mg PO TID PRN 8. DVt prophylaxis on Lovenox
[2016-06-18] MEDS: Insulin Lispro (humaLOG) 100 Units/ml Inj SC SCH ×2 (06:30→17:27)
[2016-06-18] MEDS: Levothyroxine 25 MCG TAB PO SCH (06:45)
[2016-06-18] MEDS: NIFEdipine 30 mg ER Tab PO SCH (09:01)
[2016-06-18] MEDS: Lactobacillus Acidophilus 500 MU Cap PO SCH ×2 (09:01→17:26)
[2016-06-18] MEDS: Enoxaparin 40 mg Syringe SC SCH (09:02)
[2016-06-18] MEDS: Calcium-Vit D 250 mg-125 Units Tab UD PO SCH (09:02)
--- NOTE | 2016-06-18 13:10 | PSY.TMCNF ---
Nursing - Vital Signs Vital Signs (Last 8 hours): Vital Signs 06/18/16 06/18/16 06/18/16 09:00 09:01 11:45 Temperature 97.8 F 97.8 F Pulse Rate 75 75 Respiratory 20 20 Rate Blood Pressure 153/59 H 153/59 H 153/59 H O2 Sat by Pulse 96 Oximetry Pain: 0 - Precautions: Precautions: Fall Prevention - Medications/Other Issues Comment: Pt at high nutritional risk. goals: 1. Pt to consume 75-100% of meals. 2. Blood glucoses to be between 70-180 mg/dl. Follow-up due on 2016 - Consults Comment: Dr. Mckeon, Dr. Pimentel - Toileting Toileting: Dependent - Bladder Management Bladder Pattern: Normal Voiding Method: Toilet, Bedpan Bladder Management: Maximal Assistance Frequency of Accidents: 0 - Bowel Management Bowel Pattern: Constipated Bowel Management: Modified Independent Frequency of Accidents: 0 - Transfers Transfers: Moderate Assistance - ADL's ADL's: Moderate Assistance - Pain Management Comments: Denies pain - Patient/Family Teaching Comments: Care post CVA and Safety precautions - Goals/Time Frame Comments: Per multidisciplinary care plans and goals Physical Therapy - Bed Mobility Bed Mobility: Supervision, Verbal Cues, Contact Guard, Moderate Assistance Comment: -rolling with S. -supine to/from sit with S/CG. -scooting with mod A ; patient reports she feels nauseas when she attempts to scoot up/down in bed - Transfers Wheelchair to Mat: Verbal Cues, Contact Guard, Minimal Assistance Sit to Stand: Verbal Cues, Contact Guard, Minimal Assistance Comment: -sit to/from stand and SPT with RW with CG and min A at times; patient remains with retropulsion upon standing with impaired ability to anterior and upwards shift motion - Ambulation Level of Assistance: Supervision, Verbal Cues, Contact Guard Distance (ft.): 200 Assistive Devices: Rolling Walker Orthoses: L AFO Comment: -200 feet with RW, L AFO, RW, CG/CS, FWB BLE, impaired reciprocal pattern. -x 2 trials with seated rest break. -VCs for increased step length and increased hip flexion. -slow speed. -WC follow for safety - Stair Negotiation Stairs: Level of Assistance: Verbal Cues, Contact Guard Number of Stairs: 6 Stairs: Assistive Devices: Left Handrail, Right Handrail Comment: 6 6inch steps with B rails with step to pattern, L MAFO, FWB BLE, CG for safety. -patient with tendency for posterior leaning and rightwards rotation on descent - Standing Balance Static Stand: Supervision Dynamic Stand: Contact Guard Assist, Minimal Assistance - Pain Pain (assessed during therapy session): 0 Comment: LUE shoulder stiffness - Insight/Carryover Insight/Carryover: Fair - Patient/Family Education Comment: -safety, balance, mobility, proper fitting of AFO brace with tightening of ankle strap to support foot in shoe, POC, therapy schedule, therapy goals - Assessment/Plan Assessment: Pt continues to participate in 1:1 and group recreation therapy sessions. Pt has participated in group sessions of greg and froylan and is mod- I with tasks after setup. Pt tolerates duration of sessions and continues to benefit from recreation therapy to improve arousal level and mood state. - Goals Timeframe: 7 days - Provider Therapist: Yuliet FAUST RN CRRN Occupational Therapy - Arousal/Attention/Orientation Patient Orientation: Person, Place, Time, Appropriate to Age, Appropriate to Situation - ADL/IADL Self Feeding: Supervision, Set-up Help Grooming: Supervision, Set-up Help Dressing-Upper Extremity: Minimal Assistance Dressing-Lower Extremity: Maximum Assistance - Sitting Balance Static Sitting: Independent without upper extremity support Dynamic Sitting: Reaches across midline, Reaches within base of support, Requires supervision - Transfers Wheelchair to Bed Transfers: Minimal Assistance Toilet Transfers: Minimal Assistance Tub Transfers: Minimal Assistance - Pain Pain (assessed during therapy session): 0 Comment: LUE shoulder stiffness - Insight/Carryover Insight/Carryover: Fair - Patient/Family Education Comment: -safety, balance, mobility, proper fitting of AFO brace with tightening of ankle strap to support foot in shoe, POC, therapy schedule, therapy goals - Assessment/Plan Assessment: Pt continues to participate in 1:1 and group recreation therapy sessions. Pt has participated in group sessions of greg and tapkeshia and is mod- I with tasks after setup. Pt tolerates duration of sessions and continues to benefit from recreation therapy to improve arousal level and mood state. - Goals Timeframe: 7 days - Provider Therapist: sai eduardo License Number: [id number] Speech Therapy - Plan Assessment: Pt continues to participate in 1:1 and group recreation therapy sessions. Pt has participated in group sessions of bingo and tapple and is mod- I with tasks after setup. Pt tolerates duration of sessions and continues to benefit from recreation therapy to improve arousal level and mood state. Recreational Therapy - Participation Participation: Participates in Individual and/or Group Sessions - Attendance Attendance: 3-5 times per week - Activities Leisure Activities: Cards and Games - Socialization Level of Socialization: Initiates/interacts freely with care givers and peer - Diversional Time Diversional Time: reading, watching television - Assessment Assessment/Plan: Pt continues to participate in 1:1 and group recreation therapy sessions. Pt has participated in group sessions of bingo and tapple and is mod-I with tasks after setup. Pt tolerates duration of sessions and continues to benefit from recreation therapy to improve arousal level and mood state. Problems Currently Limiting Participation: pain, weakness, decrease leisure awareness level Goals and Time Frame: Pt will be encouraged to participate in 1:1 and group recreation therapy sessions 3-5x week for 45 min to increase her arousal level, direction following level, leisure awareness level, and to improve her mood state. - Provider Therapist: Emma Lopez, [employer]LECT[employer]OVE INST[employer]ER #[id number] Nutrition - Current Diet Current Diet/ Supplement/ Feedings: Moderate consistent CHO 2 gram Na diet - Appetite Percent Meal Consumed: 50-74% - Comments Comments: Care post CVA and Safety precautions - Assessment/Goals/Time Frame Assessment/Goals/Time Frame: Pt at high nutritional risk. goals: 1. Pt to consume 75-100% of meals. 2. Blood glucoses to be between 70-180 mg/dl. Follow-up due on 06/22/2016 - Provider Provider: Monae Tobar RD Case Management - Psychosocial Assessment Support Systems: Patient's daughters. Tabitha Osmar- [phone]. Deloris Osmar- [phone] Psychological Interventions/Needs: Patient is alert and oriented x3 and is able to verbalize needs. Discharge Concerns: Patient currently requires min-modA for ADLs and max A for transfers. Patient will likely require 24 hour supervision upon discharge. Patient/Family Meeting: CM met with patient and rehab team. Intervention/Goal/Outcome:: 1. Goal: Supervision overall. 2. Plan: Home with skilled services and 24 hour supervision from family. 3. DME needs? 4. f/u appts. 5. caregiver training. 6. Tentative discharge date to be determined at next conference. - Discharge Plan Discharge Plan: Home with services Home Services: [facility] - Provider Provider: CHETNA Ramirez, OVERHEAD LINE WORKER License Number: [id number] Rehabilitation Plan - Treatment Plan Treatment Plan: Physical Therapy, Occupational Therapy, Dietary, Patient/Family Education - Discharge Plan Estimated Date of Discharge: 06/25/16 Discharge to: Home
[2016-06-18] MEDS ORDERED: Magnesium Hydroxide Susp 30 ml UD PO PRN (18:04)
--- NOTE | 2016-06-18 18:16 | CP.PCM.PN ---
Subjective - Date & Time of Evaluation Date of Evaluation: 06/18/16 Time of Evaluation: 13:00 - Subjective Subjective: Patient seen in room with daughter present denies sob/cp better nausea today GI consult requested continue current care Objective - Vital Signs/Intake and Output Vital Signs (last 24 hours): Temp Pulse Resp BP Pulse Ox 96.8 F L 78 20 143/73 97 06/18/16 16:07 06/18/16 16:07 06/18/16 16:07 06/18/16 16:07 06/18/16 16:07 - Medications Medications: Current Medications Amantadine HCl (Amantadine 100 Mg Cap) 100 mg PO BID [facility] Last Admin: 06/18/16 17:26 Dose: 100 mg Atorvastatin Calcium (Lipitor) 10 mg PO HS [facility] Last Admin: 06/17/16 21:35 Dose: 10 mg Calcium/Vitamin D (Oscal-D 250 Mg-125 Units Tab) 2 tab PO DAILY [facility] Last Admin: 06/18/16 09:02 Dose: 2 tab Clopidogrel Bisulfate (Plavix) 75 mg PO DAILY [facility] Last Admin: 06/18/16 09:01 Dose: 75 mg Docusate Sodium (Colace) 100 mg PO BID [facility] Last Admin: 06/18/16 17:26 Dose: 100 mg Enoxaparin Sodium (Lovenox) 40 mg SC DAILY [facility] PRN Reason: Protocol Last Admin: 06/18/16 09:02 Dose: 40 mg Insulin Human Lispro (Humalog) 0 units SC 0630,1630 [facility] PRN Reason: Protocol Last Admin: 06/18/16 17:27 Dose: Not Given Lactobacillus Acidophilus (Bacid Acidophilus) 1 cap PO BID [facility] Last Admin: 06/18/16 17:26 Dose: 1 cap Levothyroxine Sodium (Synthroid) 25 mcg PO DAILY@0630 [facility] Last Admin: 06/18/16 06:45 Dose: 25 mcg Lisinopril (Zestril) 20 mg PO DAILY [facility] Last Admin: 06/18/16 09:00 Dose: 20 mg Magnesium Hydroxide (Milk Of Magnesia) 30 ml PO HS PRN PRN Reason: Constipation Metformin HCl (Glucophage) 500 mg PO BID [facility] Last Admin: 06/18/16 17:27 Dose: 500 mg Metoclopramide HCl (Reglan) 10 mg PO TID PRN PRN Reason: Nausea/Vomiting Last Admin: 06/18/16 07:37 Dose: 10 mg Nifedipine (Procardia Xl) 30 mg PO DAILY [facility] Last Admin: 06/18/16 09:01 Dose: 30 mg Ondansetron HCl (Zofran Tab) 4 mg PO Q6 PRN PRN Reason: Nausea/Vomiting Last Admin: 06/17/16 09:24 Dose: 4 mg Repaglinide (Prandin) 2 mg PO DIN [facility] Last Admin: 06/18/16 17:28 Dose: 2 mg - Labs Labs: 06/17/16 05:40 06/14/16 11:55
[2016-06-19] MEDS: Insulin Lispro (humaLOG) 100 Units/ml Inj SC SCH ×2 (06:00→17:17)
[2016-06-19] MEDS: Levothyroxine 25 MCG TAB PO SCH (06:28)
[2016-06-19] MEDS: Enoxaparin 40 mg Syringe SC SCH (08:44)
[2016-06-19] MEDS: Calcium-Vit D 250 mg-125 Units Tab UD PO SCH (08:45)
[2016-06-19] MEDS: NIFEdipine 30 mg ER Tab PO SCH (08:47)
--- NOTE | 2016-06-19 16:43 | CP.PCM.CON ---
History of Present Illness - History of Present Illness History of Present Illness: CC: Vomiting HPI: 80 year old female with h/o HTN, DM, CVA, Hypothyroidism, Diverticulosis, chronic constipation who is admitted with LLE weakness / fall, for acute rehabilitation. She developed nausea and vomiting. She reports she didn't have this problem until she was transferrred to [facility] for rehab. She is known to me and hasn't had this problem really before. She normally has chronic constipation and has been on treatment for that. She says that her medications have changed while in the hospital and she is unsure the impract, but at one point, she went a week without moving her bowels. She had two episodes of NBNB emesis today, none yesterday, and a few the day before. She denies nausea, vomiting, heartburn, chest pain, or sob. Denies abdominal pain. PMHx CVA, DM, HTN PSHx Thyroidectomy ROS A comprehensive review of systems was performed and was negative apart from HPI SHx non smoker/drinker FHx no family history of gi cancer Past Patient History - Infectious Disease Hx of Infectious Diseases: None - Tetanus Immunizations Tetanus Immunization: Unknown - Past Medical History & Family History Past Medical History?: Yes - Past Social History Smoking Status: Former Smoker Home Situation {Lives}: Alone (daughter lives in the building) - CARDIAC Hx Hypertension: Yes - PULMONARY Hx Respiratory Disorders: No - NEUROLOGICAL HX Cerebrovascular Accident: Yes - HEENT Other/Comment: Reading glasses - RENAL Hx Chronic Kidney Disease: No - ENDOCRINE/METABOLIC Hx Diabetes Mellitus Type 2: Yes - HEMATOLOGICAL/ONCOLOGICAL Hx Blood Transfusions: No Hx Blood Transfusion Reaction: No - INTEGUMENTARY Hx Dermatological Problems: No - MUSCULOSKELETAL/RHEUMATOLOGICAL Hx Musculoskeletal Disorders: No Hx Falls: Yes - GASTROINTESTINAL Hx Gastrointestinal Disorders: Yes Hx Diverticulitis: Yes (diverticulosis) Other/Comment: bezoid - GENITOURINARY/GYNECOLOGICAL Hx Genitourinary Disorders: No - PSYCHIATRIC Hx Psychophysiologic Disorder: No Hx Substance Use: No - SURGICAL HISTORY Hx Surgeries: Yes - ANESTHESIA Hx Anesthesia: Yes Hx Anesthesia Reactions: No Hx Malignant Hyperthermia: No Meds Allergies/Adverse Reactions: Allergies Allergy/AdvReac Type Severity Reaction Status Date / Time lansoprazole [From Prevacid] Allergy RASH Verified 10/08/15 15:49 omeprazole Allergy URTICARIA Verified 10/08/15 15:49 - Medications Medications: Current Medications Amantadine HCl (Amantadine 100 Mg Cap) 100 mg PO BID [facility] Last Admin: 06/19/16 08:47 Dose: 100 mg Atorvastatin Calcium (Lipitor) 10 mg PO HS [facility] Last Admin: 06/18/16 22:15 Dose: 10 mg Calcium/Vitamin D (Oscal-D 250 Mg-125 Units Tab) 2 tab PO DAILY [facility] Last Admin: 06/19/16 08:45 Dose: 2 tab Clopidogrel Bisulfate (Plavix) 75 mg PO DAILY [facility] Last Admin: 06/19/16 08:44 Dose: 75 mg Docusate Sodium (Colace) 100 mg PO BID [facility] Last Admin: 06/19/16 08:47 Dose: 100 mg Enoxaparin Sodium (Lovenox) 40 mg SC DAILY [facility] PRN Reason: Protocol Last Admin: 06/19/16 08:44 Dose: 40 mg Insulin Human Lispro (Humalog) 0 units SC 0630,1630 [facility] PRN Reason: Protocol Last Admin: 06/19/16 06:00 Dose: Not Given Levothyroxine Sodium (Synthroid) 25 mcg PO DAILY@0630 [facility] Last Admin: 06/19/16 06:28 Dose: 25 mcg Lisinopril (Zestril) 20 mg PO DAILY [facility] Last Admin: 06/19/16 08:45 Dose: 20 mg Magnesium Hydroxide (Milk Of Magnesia) 30 ml PO HS PRN PRN Reason: Constipation Last Admin: 06/18/16 22:26 Dose: 30 ml Metformin HCl (Glucophage) 500 mg PO BID [facility] Last Admin: 06/19/16 08:47 Dose: 500 mg Metoclopramide HCl (Reglan) 10 mg PO TID PRN PRN Reason: Nausea/Vomiting Last Admin: 06/19/16 06:05 Dose: 10 mg Nifedipine (Procardia Xl) 30 mg PO DAILY [facility] Last Admin: 06/19/16 08:47 Dose: 30 mg Ondansetron HCl (Zofran Tab) 4 mg PO Q6 PRN PRN Reason: Nausea/Vomiting Last Admin: 06/17/16 09:24 Dose: 4 mg Polyethylene Glycol (Miralax) 17 gm PO BID [facility] Repaglinide (Prandin) 2 mg PO DIN [facility] Last Admin: 06/18/16 17:28 Dose: 2 mg Physical Exam - Constitutional Appears: No Acute Distress, Older Than Stated Age, Chronically Ill - Head Exam Head Exam: ATRAUMATIC, NORMOCEPHALIC - Eye Exam Eye Exam: Normal appearance. absent: Scleral icterus - ENT Exam ENT Exam: Mucous Membranes Moist, Normal Oropharynx - Neck Exam Neck exam: Negative for: Lymphadenopathy, Thyromegaly - Respiratory Exam Respiratory Exam: NORMAL BREATHING PATTERN. absent: Wheezes, Respiratory Distress - Cardiovascular Exam Cardiovascular Exam: REGULAR RHYTHM, +S1, +S2 - GI/Abdominal Exam GI & Abdominal Exam: Soft. absent: Distended, Guarding, Tenderness - Extremities Exam Extremities exam: Positive for: normal capillary refill. Negative for: pedal edema - Neurological Exam Neurological exam: Alert, Oriented x3 - Psychiatric Exam Psychiatric exam: Normal Affect, Normal Mood - Skin Skin Exam: Dry, Normal Color, Warm Results - Vital Signs Recent Vital Signs: Last Vital Signs Temp 96.4 F L 06/19/16 15:45 Pulse 89 06/19/16 15:45 Resp 20 06/19/16 15:45 BP 149/61 06/19/16 15:45 Pulse Ox 98 06/19/16 15:45 - Labs Result Diagrams: 06/17/16 05:40 06/14/16 11:55 Labs: Laboratory Results - last 24 hr 06/19/16 06/19/16 06/19/16 05:25 12:24 16:00 POC Glucose (mg/dL) 67 193 H 142 H Assessment & Plan - Assessment and Plan (Free Text) Assessment: 80 year old female with h/o DM, HTN, CVA, Hypothyroidism, Diverticulosis, chronic constipation who is admitted for acute rehabilitation, also with nausea/ vomiting. 1. Nausea and vomiting 2. Chronic constipation Plan: -supportive care -vomiting may be a consequence of changes in her medication regimen -conservative management for now -start PPI daily -stop colace -start Miralax 17 g PO BID -small frequent meals -good glycemic control -avoid any narcotics -zofran as needed for nausea -stop reglan due to possitibility of neurological side effects -if persistent/worsening, would recommend CT abd/pelvis with PO/IV contrast - Date & Time Date: 06/19/16 Time: 16:43
--- NOTE | 2016-06-19 18:41 | CP.PCM.PN ---
Subjective - Date & Time of Evaluation Date of Evaluation: 06/19/16 Time of Evaluation: 13:30 - Subjective Subjective: Pt seen and examined. Still vomiting at least once a day. Objective - Vital Signs/Intake and Output Vital Signs (last 24 hours): Temp Pulse Resp BP Pulse Ox 96.4 F L 89 20 149/61 98 06/19/16 15:45 06/19/16 15:45 06/19/16 15:45 06/19/16 15:45 06/19/16 15:45 - Medications Medications: Current Medications Amantadine HCl (Amantadine 100 Mg Cap) 100 mg PO BID [facility] Last Admin: 06/19/16 17:17 Dose: 100 mg Atorvastatin Calcium (Lipitor) 10 mg PO HS [facility] Last Admin: 06/18/16 22:15 Dose: 10 mg Calcium/Vitamin D (Oscal-D 250 Mg-125 Units Tab) 2 tab PO DAILY [facility] Last Admin: 06/19/16 08:45 Dose: 2 tab Clopidogrel Bisulfate (Plavix) 75 mg PO DAILY [facility] Last Admin: 06/19/16 08:44 Dose: 75 mg Docusate Sodium (Colace) 100 mg PO BID [facility] Last Admin: 06/19/16 08:47 Dose: 100 mg Enoxaparin Sodium (Lovenox) 40 mg SC DAILY [facility] PRN Reason: Protocol Last Admin: 06/19/16 08:44 Dose: 40 mg Insulin Human Lispro (Humalog) 0 units SC 0630,1630 [facility] PRN Reason: Protocol Last Admin: 06/19/16 17:17 Dose: Not Given Levothyroxine Sodium (Synthroid) 25 mcg PO DAILY@0630 [facility] Last Admin: 06/19/16 06:28 Dose: 25 mcg Lisinopril (Zestril) 20 mg PO DAILY [facility] Last Admin: 06/19/16 08:45 Dose: 20 mg Magnesium Hydroxide (Milk Of Magnesia) 30 ml PO HS PRN PRN Reason: Constipation Last Admin: 06/18/16 22:26 Dose: 30 ml Metformin HCl (Glucophage) 500 mg PO BID [facility] Last Admin: 06/19/16 17:17 Dose: 500 mg Metoclopramide HCl (Reglan) 10 mg PO TID PRN PRN Reason: Nausea/Vomiting Last Admin: 06/19/16 06:05 Dose: 10 mg Nifedipine (Procardia Xl) 30 mg PO DAILY [facility] Last Admin: 06/19/16 08:47 Dose: 30 mg Ondansetron HCl (Zofran Tab) 4 mg PO Q6 PRN PRN Reason: Nausea/Vomiting Last Admin: 06/17/16 09:24 Dose: 4 mg Polyethylene Glycol (Miralax) 17 gm PO BID [facility] Repaglinide (Prandin) 2 mg PO DIN [facility] Last Admin: 06/19/16 17:18 Dose: 2 mg - Labs Labs: 06/17/16 05:40 06/14/16 11:55 - Constitutional Appears: No Acute Distress - Head Exam Head Exam: ATRAUMATIC - Eye Exam Eye Exam: PERRL - ENT Exam ENT Exam: Mucous Membranes Moist - Neck Exam Neck Exam: absent: Meningismus - Respiratory Exam Respiratory Exam: absent: Rhonchi, Wheezes, Respiratory Distress - Cardiovascular Exam Cardiovascular Exam: REGULAR RHYTHM, +S1, +S2 - GI/Abdominal Exam GI & Abdominal Exam: Soft. absent: Tenderness - Rectal Exam Rectal Exam: Deferred - Neurological Exam Neurological Exam: Alert, Oriented x3 - Psychiatric Exam Psychiatric exam: Normal Affect - Skin Skin Exam: Dry, Intact Assessment and Plan - Assessment and Plan (Free Text) Assessment: 80 yo female with history of DM2, Hypothyroidism, HTN and previous CVA with chronic LLE weakness admitted at [facility] because of a fall in the bathtub. 1. S/P CVA with chronic LLE and frequent falls continue PT/OT on Plavix, Lipitor and BP medications 2. UTI resolved Finished full course with antibiotics 3. Hypertension BP stable Continue Nifedipine and Lisinopril 4. Diabetes Mellitus BS controlled continue Metformin 500mg PO BID 5. Hypothyroidism Continue Levothyroixine 25 mcg PO daily 6. Essential Tremors Continue Amatadine 100 mg PO BID 7. Nausea/Vomiting probably drug related or related to gastroparesis DC Primidone started Reglan 10 mg PO TID PRN 8. DVt prophylaxis on Lovenox
[2016-06-19] MEDS: POLYETHYLENE GLYCOL 3350 17 GM/Dose PACKET PO SCH (22:30)
[2016-06-20] MEDS: Levothyroxine 25 MCG TAB PO SCH (06:11)
[2016-06-20] MEDS: Insulin Lispro (humaLOG) 100 Units/ml Inj SC SCH ×2 (06:12→17:06)
[2016-06-20 07:56] LABS: HEMATOCRIT 33.6 % (34.0-47.0); MEAN CELL VOLUME 78.1 fl (81.0-99.0); MEAN CORPUSCULAR HEMOGLOBIN 24.6 pg (27.0-31.0); MEAN CORPUSCULAR HGB CONC 31.6 g/dL (33.0-37.0); RED CELL DISTRIBUTION WIDTH 16.6 % (11.5-14.5); WHITE BLOOD COUNT 7.4 K/uL (4.8-10.8)
[2016-06-20] MEDS: NIFEdipine 30 mg ER Tab PO SCH (08:40)
[2016-06-20] MEDS: POLYETHYLENE GLYCOL 3350 17 GM/Dose PACKET PO SCH ×2 (08:40→17:07)
[2016-06-20] MEDS: Enoxaparin 40 mg Syringe SC SCH (08:41)
[2016-06-20] MEDS: Calcium-Vit D 250 mg-125 Units Tab UD PO SCH (08:41)
--- NOTE | 2016-06-20 12:46 | CP.PCM.PN ---
Subjective - Date & Time of Evaluation Date of Evaluation: 06/20/16 Time of Evaluation: 12:40 - Subjective Subjective: Patient seen at bedside. Abdominal pain better. Moved bowels yesterday. Denies nausea. Ate breakfast Objective - Vital Signs/Intake and Output Vital Signs (last 24 hours): Temp Pulse Resp BP Pulse Ox 97.3 F L 71 19 151/67 H 96 06/20/16 08:47 06/20/16 08:47 06/20/16 08:47 06/20/16 08:47 06/20/16 08:47 - Medications Medications: Current Medications Amantadine HCl (Amantadine 100 Mg Cap) 100 mg PO BID [facility] Last Admin: 06/20/16 08:41 Dose: 100 mg Atorvastatin Calcium (Lipitor) 10 mg PO [facility] Last Admin: 06/19/16 22:30 Dose: 10 mg Calcium/Vitamin D (Oscal-D 250 Mg-125 Units Tab) 2 tab PO DAILY [facility] Last Admin: 06/20/16 08:41 Dose: 2 tab Clopidogrel Bisulfate (Plavix) 75 mg PO DAILY [facility] Last Admin: 06/20/16 08:41 Dose: 75 mg Docusate Sodium (Colace) 100 mg PO BID [facility] Last Admin: 06/19/16 08:47 Dose: 100 mg Enoxaparin Sodium (Lovenox) 40 mg SC DAILY [facility] PRN Reason: Protocol Last Admin: 06/20/16 08:41 Dose: 40 mg Insulin Human Lispro (Humalog) 0 units SC 0630,1630 [facility] PRN Reason: Protocol Last Admin: 06/20/16 06:12 Dose: Not Given Levothyroxine Sodium (Synthroid) 25 mcg PO DAILY@0630 [facility] Last Admin: 06/20/16 06:11 Dose: 25 mcg Lisinopril (Zestril) 20 mg PO DAILY [facility] Last Admin: 06/20/16 08:42 Dose: 20 mg Magnesium Hydroxide (Milk Of Magnesia) 30 ml PO PRN PRN Reason: Constipation Last Admin: 06/18/16 22:26 Dose: 30 ml Metformin HCl (Glucophage) 500 mg PO BID [facility] Last Admin: 06/20/16 08:41 Dose: 500 mg Metoclopramide HCl (Reglan) 10 mg PO TID PRN PRN Reason: Nausea/Vomiting Last Admin: 06/19/16 06:05 Dose: 10 mg Nifedipine (Procardia Xl) 30 mg PO DAILY [facility] Last Admin: 06/20/16 08:40 Dose: 30 mg Ondansetron HCl (Zofran Tab) 4 mg PO Q6 PRN PRN Reason: Nausea/Vomiting Last Admin: 06/20/16 08:40 Dose: 4 mg Polyethylene Glycol (Miralax) 17 gm PO BID [facility] Last Admin: 06/20/16 08:40 Dose: 17 gm Repaglinide (Prandin) 2 mg PO DIN [facility] Last Admin: 06/19/16 17:18 Dose: 2 mg - Labs Labs: 06/20/16 07:16 06/14/16 11:55 - Constitutional Appears: Well, Non-toxic, No Acute Distress - Head Exam Head Exam: ATRAUMATIC, NORMAL INSPECTION, NORMOCEPHALIC - Respiratory Exam Respiratory Exam: Clear to Ausculation Bilateral, NORMAL BREATHING PATTERN - Cardiovascular Exam Cardiovascular Exam: REGULAR RHYTHM, +S1, +S2. absent: Murmur - GI/Abdominal Exam GI & Abdominal Exam: Soft, Normal Bowel Sounds. absent: Tenderness - Psychiatric Exam Psychiatric exam: Normal Affect, Normal Mood Assessment and Plan - Assessment and Plan (Free Text) Assessment: 80 year old female with h/o DM, HTN, CVA, Hypothyroidism, Diverticulosis, chronic constipation who is admitted for acute rehabilitation, also with nausea/ vomiting. Plan: - Continue stool softeners - Continue PPI in am daily - Diet as tolerated - Gi symptoms have abated. - Will sign off. Please call prn - Thank you for letting us participate in the care of this patient
[2016-06-20 16:49] VITALS: RESP 20
[2016-06-21] MEDS: Levothyroxine 25 MCG TAB PO SCH (05:59)
[2016-06-21] MEDS: Insulin Lispro (humaLOG) 100 Units/ml Inj SC SCH ×2 (06:00→17:11)
--- NOTE | 2016-06-21 08:03 | CP.PCM.CON ---
History of Present Illness - History of Present Illness History of Present Illness: Pt seen for supportive therapy 7:30-7:50. Pt disc progress of therapy and gains made. Pt spoke of ambulation, increased independence and readiness for discharge. Pt spoke of family tensions, providing guidance to others, and desire for resolution of tensions overall. Pt expressive, communicative and further services are reccomended. Mood improved overall. plan: Continued Sup therapy Past Patient History - Infectious Disease Hx of Infectious Diseases: None - Tetanus Immunizations Tetanus Immunization: Unknown - Past Medical History & Family History Past Medical History?: Yes - Past Social History Smoking Status: Former Smoker Home Situation {Lives}: Alone (daughter lives in the building) - CARDIAC Hx Hypertension: Yes - PULMONARY Hx Respiratory Disorders: No - NEUROLOGICAL HX Cerebrovascular Accident: Yes - HEENT Other/Comment: Reading glasses - RENAL Hx Chronic Kidney Disease: No - ENDOCRINE/METABOLIC Hx Diabetes Mellitus Type 2: Yes - HEMATOLOGICAL/ONCOLOGICAL Hx Blood Transfusions: No Hx Blood Transfusion Reaction: No - INTEGUMENTARY Hx Dermatological Problems: No - MUSCULOSKELETAL/RHEUMATOLOGICAL Hx Musculoskeletal Disorders: No Hx Falls: Yes - GASTROINTESTINAL Hx Gastrointestinal Disorders: Yes Hx Diverticulitis: Yes (diverticulosis) Other/Comment: bezoid - GENITOURINARY/GYNECOLOGICAL Hx Genitourinary Disorders: No - PSYCHIATRIC Hx Psychophysiologic Disorder: No Hx Substance Use: No - SURGICAL HISTORY Hx Surgeries: Yes - ANESTHESIA Hx Anesthesia: Yes Hx Anesthesia Reactions: No Hx Malignant Hyperthermia: No Meds Allergies/Adverse Reactions: Allergies Allergy/AdvReac Type Severity Reaction Status Date / Time lansoprazole [From Prevacid] Allergy RASH Verified 10/08/15 15:49 omeprazole Allergy URTICARIA Verified 10/08/15 15:49 - Medications Medications: Current Medications Amantadine HCl (Amantadine 100 Mg Cap) 100 mg PO BID [facility] Last Admin: 06/20/16 17:07 Dose: 100 mg Atorvastatin Calcium (Lipitor) 10 mg PO HS [facility] Last Admin: 06/20/16 21:07 Dose: 10 mg Calcium/Vitamin D (Oscal-D 250 Mg-125 Units Tab) 2 tab PO DAILY [facility] Last Admin: 06/20/16 08:41 Dose: 2 tab Clopidogrel Bisulfate (Plavix) 75 mg PO DAILY [facility] Last Admin: 06/20/16 08:41 Dose: 75 mg Docusate Sodium (Colace) 100 mg PO BID [facility] Last Admin: 06/19/16 08:47 Dose: 100 mg Enoxaparin Sodium (Lovenox) 40 mg SC DAILY [facility] PRN Reason: Protocol Last Admin: 06/20/16 08:41 Dose: 40 mg Insulin Human Lispro (Humalog) 0 units SC 0630,1630 [facility] PRN Reason: Protocol Last Admin: 06/21/16 06:00 Dose: Not Given Levothyroxine Sodium (Synthroid) 25 mcg PO DAILY@0630 [facility] Last Admin: 06/21/16 05:59 Dose: 25 mcg Lisinopril (Zestril) 20 mg PO DAILY [facility] Last Admin: 06/20/16 08:42 Dose: 20 mg Magnesium Hydroxide (Milk Of Magnesia) 30 ml PO PRN PRN Reason: Constipation Last Admin: 06/18/16 22:26 Dose: 30 ml Metformin HCl (Glucophage) 500 mg PO BID [facility] Last Admin: 06/20/16 17:07 Dose: 500 mg Metoclopramide HCl (Reglan) 10 mg PO TID PRN PRN Reason: Nausea/Vomiting Last Admin: 06/19/16 06:05 Dose: 10 mg Nifedipine (Procardia Xl) 30 mg PO DAILY [facility] Last Admin: 06/20/16 08:40 Dose: 30 mg Ondansetron HCl (Zofran Tab) 4 mg PO Q6 PRN PRN Reason: Nausea/Vomiting Last Admin: 06/20/16 08:40 Dose: 4 mg Polyethylene Glycol (Miralax) 17 gm PO BID [facility] Last Admin: 06/20/16 17:07 Dose: 17 gm Repaglinide (Prandin) 2 mg PO DIN [facility] Last Admin: 06/20/16 17:07 Dose: 2 mg Results - Vital Signs Recent Vital Signs: Last Vital Signs Temp 97.2 F L 06/20/16 21:10 Pulse 72 06/20/16 21:10 Resp 20 06/20/16 21:10 BP 142/68 06/20/16 21:10 Pulse Ox 96 06/20/16 21:10 - Labs Result Diagrams: 06/20/16 07:16 06/14/16 11:55 Labs: Laboratory Results - last 24 hr 06/20/16 06/20/16 06/21/16 07:16 16:33 05:12 WBC 7.4 RBC 4.31 Hgb 10.6 L Hct 33.6 L MCV 78.1 L MCH 24.6 L MCHC 31.6 L RDW 16.6 H Plt Count 230 POC Glucose (mg/dL) 194 H 70
[2016-06-21] MEDS: Enoxaparin 40 mg Syringe SC SCH (09:12)
[2016-06-21] MEDS: Calcium-Vit D 250 mg-125 Units Tab UD PO SCH (09:13)
[2016-06-21] MEDS: POLYETHYLENE GLYCOL 3350 17 GM/Dose PACKET PO SCH ×2 (09:13→17:11)
[2016-06-21] MEDS: NIFEdipine 30 mg ER Tab PO SCH (09:14)
--- NOTE | 2016-06-21 09:35 | CP.PCM.PN ---
Subjective - Date & Time of Evaluation Date of Evaluation: 06/21/16 Time of Evaluation: 16:05 - Subjective Subjective: pt feeling better today tolerating PT well no emesis yesterday GI consulted, PPI is helping vitals stable no acute distress Objective - Vital Signs/Intake and Output Vital Signs (last 24 hours): Temp Pulse Resp BP Pulse Ox 97.2 F L 82 20 110/70 96 06/20/16 21:10 06/21/16 09:15 06/20/16 21:10 06/21/16 09:15 06/20/16 21:10 - Medications Medications: Current Medications Amantadine HCl (Amantadine 100 Mg Cap) 100 mg PO BID [facility] Last Admin: 06/21/16 09:12 Dose: 100 mg Atorvastatin Calcium (Lipitor) 10 mg PO HS [facility] Last Admin: 06/20/16 21:07 Dose: 10 mg Calcium/Vitamin D (Oscal-D 250 Mg-125 Units Tab) 2 tab PO DAILY [facility] Last Admin: 06/21/16 09:13 Dose: 2 tab Clopidogrel Bisulfate (Plavix) 75 mg PO DAILY [facility] Last Admin: 06/21/16 09:14 Dose: 75 mg Docusate Sodium (Colace) 100 mg PO BID [facility] Last Admin: 06/19/16 08:47 Dose: 100 mg Enoxaparin Sodium (Lovenox) 40 mg SC DAILY [facility] PRN Reason: Protocol Last Admin: 06/21/16 09:12 Dose: 40 mg Insulin Human Lispro (Humalog) 0 units SC 0630,1630 [facility] PRN Reason: Protocol Last Admin: 06/21/16 06:00 Dose: Not Given Levothyroxine Sodium (Synthroid) 25 mcg PO DAILY@0630 [facility] Last Admin: 06/21/16 05:59 Dose: 25 mcg Lisinopril (Zestril) 20 mg PO DAILY [facility] Last Admin: 06/21/16 09:15 Dose: 20 mg Magnesium Hydroxide (Milk Of Magnesia) 30 ml PO PRN PRN Reason: Constipation Last Admin: 06/18/16 22:26 Dose: 30 ml Metformin HCl (Glucophage) 500 mg PO BID [facility] Last Admin: 06/21/16 09:13 Dose: 500 mg Metoclopramide HCl (Reglan) 10 mg PO TID PRN PRN Reason: Nausea/Vomiting Last Admin: 06/19/16 06:05 Dose: 10 mg Nifedipine (Procardia Xl) 30 mg PO DAILY [facility] Last Admin: 06/21/16 09:14 Dose: 30 mg Ondansetron HCl (Zofran Tab) 4 mg PO Q6 PRN PRN Reason: Nausea/Vomiting Last Admin: 06/20/16 08:40 Dose: 4 mg Polyethylene Glycol (Miralax) 17 gm PO BID [facility] Last Admin: 06/21/16 09:13 Dose: 17 gm Repaglinide (Prandin) 2 mg PO DIN [facility] Last Admin: 06/20/16 17:07 Dose: 2 mg - Labs Labs: 06/20/16 07:16 06/14/16 11:55 Assessment and Plan - Assessment and Plan (Free Text) Plan: 80 yo female with history of DM2, Hypothyroidism, HTN and previous CVA with chronic LLE weakness admitted at [facility] because of a fall in the bathtub. 1. S/P CVA with chronic LLE and frequent falls continue PT/OT on Plavix, Lipitor and BP medications Physiatry consult appreciated and followed 2. UTI resolved Finished full course with antibiotics 3. Hypertension BP stable Continue Nifedipine and Lisinopril 4. Diabetes Mellitus BS controlled continue Metformin 500mg PO BID 5. Hypothyroidism Continue Levothyroixine 25 mcg PO daily 6. Essential Tremors Continue Amatadine 100 mg PO BID 7. Nausea/Vomiting probably drug related or related to gastroparesis DC Primidone started Reglan 10 mg PO TID PRN GI Consult appreciated and followed added PPI daily in AM small meals 6x day 8. DVt prophylaxis on Lovenox
[2016-06-21] MEDS ORDERED: Pantoprazole 40 mg EC Tab PO SCH (09:45)
--- NOTE | 2016-06-21 16:28 | CP.PCM.PN ---
Subjective - Date & Time of Evaluation Date of Evaluation: 06/21/16 Time of Evaluation: 16:27 - Subjective Subjective: Patient seen in gym smiling and in good spirits ambulated 200' with RW and better balance great benefits from rehab stay continue current care Objective - Vital Signs/Intake and Output Vital Signs (last 24 hours): Temp Pulse Resp BP Pulse Ox 98 F 82 20 110/70 98 06/21/16 10:00 06/21/16 10:00 06/21/16 10:00 06/21/16 10:00 06/21/16 10:00 - Medications Medications: Current Medications Amantadine HCl (Amantadine 100 Mg Cap) 100 mg PO BID [facility] Last Admin: 06/21/16 09:12 Dose: 100 mg Atorvastatin Calcium (Lipitor) 10 mg PO HS [facility] Last Admin: 06/20/16 21:07 Dose: 10 mg Calcium/Vitamin D (Oscal-D 250 Mg-125 Units Tab) 2 tab PO DAILY [facility] Last Admin: 06/21/16 09:13 Dose: 2 tab Clopidogrel Bisulfate (Plavix) 75 mg PO DAILY [facility] Last Admin: 06/21/16 09:14 Dose: 75 mg Docusate Sodium (Colace) 100 mg PO BID [facility] Last Admin: 06/19/16 08:47 Dose: 100 mg Enoxaparin Sodium (Lovenox) 40 mg SC DAILY [facility] PRN Reason: Protocol Last Admin: 06/21/16 09:12 Dose: 40 mg Famotidine (Pepcid) 20 mg PO DAILY [facility] Insulin Human Lispro (Humalog) 0 units SC 0630,1630 [facility] PRN Reason: Protocol Last Admin: 06/21/16 06:00 Dose: Not Given Levothyroxine Sodium (Synthroid) 25 mcg PO DAILY@0630 [facility] Last Admin: 06/21/16 05:59 Dose: 25 mcg Lisinopril (Zestril) 20 mg PO DAILY [facility] Last Admin: 06/21/16 09:15 Dose: 20 mg Magnesium Hydroxide (Milk Of Magnesia) 30 ml PO HS PRN PRN Reason: Constipation Last Admin: 06/18/16 22:26 Dose: 30 ml Metformin HCl (Glucophage) 500 mg PO BID [facility] Last Admin: 06/21/16 09:13 Dose: 500 mg Metoclopramide HCl (Reglan) 10 mg PO TID PRN PRN Reason: Nausea/Vomiting Last Admin: 06/19/16 06:05 Dose: 10 mg Nifedipine (Procardia Xl) 30 mg PO DAILY [facility] Last Admin: 06/21/16 09:14 Dose: 30 mg Ondansetron HCl (Zofran Tab) 4 mg PO Q6 PRN PRN Reason: Nausea/Vomiting Last Admin: 06/21/16 09:50 Dose: 4 mg Polyethylene Glycol (Miralax) 17 gm PO BID [facility] Last Admin: 06/21/16 09:13 Dose: 17 gm Repaglinide (Prandin) 2 mg PO DIN [facility] Last Admin: 06/20/16 17:07 Dose: 2 mg - Labs Labs: 06/20/16 07:16 06/14/16 11:55
[2016-06-22] MEDS: Levothyroxine 25 MCG TAB PO SCH (06:22)
[2016-06-22] MEDS: Insulin Lispro (humaLOG) 100 Units/ml Inj SC SCH ×2 (06:25→17:18)
[2016-06-22] MEDS: Enoxaparin 40 mg Syringe SC SCH (09:02)
[2016-06-22] MEDS: POLYETHYLENE GLYCOL 3350 17 GM/Dose PACKET PO SCH ×2 (09:02→17:19)
[2016-06-22] MEDS: NIFEdipine 30 mg ER Tab PO SCH (09:03)
[2016-06-22] MEDS: Calcium-Vit D 250 mg-125 Units Tab UD PO SCH (09:03)
[2016-06-23] MEDS: Insulin Lispro (humaLOG) 100 Units/ml Inj SC SCH ×3 (06:36→17:12)
[2016-06-23] MEDS: Levothyroxine 25 MCG TAB PO SCH (06:42)
[2016-06-23 07:55] LABS: HEMATOCRIT 32.5 % (34.0-47.0); MEAN CELL VOLUME 77.5 fl (81.0-99.0); MEAN CORPUSCULAR HEMOGLOBIN 24.5 pg (27.0-31.0); MEAN CORPUSCULAR HGB CONC 31.6 g/dL (33.0-37.0); RED CELL DISTRIBUTION WIDTH 16.1 % (11.5-14.5); WHITE BLOOD COUNT 7.1 K/uL (4.8-10.8)
[2016-06-23] MEDS: POLYETHYLENE GLYCOL 3350 17 GM/Dose PACKET PO SCH ×2 (08:41→17:11)
[2016-06-23] MEDS: Calcium-Vit D 250 mg-125 Units Tab UD PO SCH (08:41)
[2016-06-23] MEDS: Enoxaparin 40 mg Syringe SC SCH (08:41)
[2016-06-23] MEDS: NIFEdipine 30 mg ER Tab PO SCH (08:42)
[2016-06-24] MEDS: Insulin Lispro (humaLOG) 100 Units/ml Inj SC SCH ×2 (06:55→15:51)
[2016-06-24] MEDS: Levothyroxine 25 MCG TAB PO SCH (07:04)
[2016-06-24] MEDS: Enoxaparin 40 mg Syringe SC SCH (09:12)
[2016-06-24] MEDS: NIFEdipine 30 mg ER Tab PO SCH (09:13)
[2016-06-24] MEDS: Calcium-Vit D 250 mg-125 Units Tab UD PO SCH (09:13)
[2016-06-24] MEDS: POLYETHYLENE GLYCOL 3350 17 GM/Dose PACKET PO SCH ×2 (09:13→16:24)
--- NOTE | 2016-06-24 11:17 | CP.PCM.PN ---
Subjective - Date & Time of Evaluation Date of Evaluation: 06/24/16 Time of Evaluation: 11:14 - Subjective Subjective: Patient doing well with PT, states she feels she is improving and is ready to go home tomorrow. Vitals stable, no acute distress. Encouraging small meals, as she still vomited yesterday, continuing PPI. Patient BG in AM has been low, however after speaking with patient this is likely due to poor PO intake in hospital. Patient states she has not been able to eat the food here, and will likely be eating more at home. While in hospital, d/c repaglinide however resume when DC home. Objective - Vital Signs/Intake and Output Vital Signs (last 24 hours): Temp Pulse Resp BP Pulse Ox 98.2 F 70 20 143/64 95 06/24/16 08:13 06/24/16 09:14 06/24/16 08:13 06/24/16 09:14 06/24/16 08:13 GEN: WDWN, alert, cooperative HEENT: NCAT, PERRL, EOMI Neck: supple, no lymphadenopathy CARDIO: +S1S2, RRR, NO M/R/G LUNG: CTAB, NO W/R/R ABD: soft, NT, ND, no masses, no HSM EXT: no edema, pedal pulses Neuro: AAOx3, Strength equal, bilateral UE/LE Psych: normal mood, normal affect - Medications Medications: Current Medications Amantadine HCl (Amantadine 100 Mg Cap) 100 mg PO BID [facility] Last Admin: 06/24/16 09:12 Dose: 100 mg Atorvastatin Calcium (Lipitor) 10 mg PO HS [facility] Last Admin: 06/23/16 21:34 Dose: 10 mg Calcium/Vitamin D (Oscal-D 250 Mg-125 Units Tab) 2 tab PO DAILY [facility] Last Admin: 06/24/16 09:13 Dose: 2 tab Clopidogrel Bisulfate (Plavix) 75 mg PO DAILY [facility] Last Admin: 06/24/16 09:13 Dose: 75 mg Docusate Sodium (Colace) 100 mg PO BID [facility] Last Admin: 06/19/16 08:47 Dose: 100 mg Enoxaparin Sodium (Lovenox) 40 mg SC DAILY [facility] PRN Reason: Protocol Last Admin: 06/24/16 09:12 Dose: 40 mg Famotidine (Pepcid) 20 mg PO DAILY [facility] Last Admin: 06/24/16 09:13 Dose: 20 mg Insulin Human Lispro (Humalog) 0 units SC 0630,1630 [facility] PRN Reason: Protocol Last Admin: 06/24/16 06:55 Dose: Not Given Levothyroxine Sodium (Synthroid) 25 mcg PO DAILY@0630 [facility] Last Admin: 06/24/16 07:04 Dose: 25 mcg Lisinopril (Zestril) 20 mg PO DAILY [facility] Last Admin: 06/24/16 09:14 Dose: 20 mg Magnesium Hydroxide (Milk Of Magnesia) 30 ml PO HS PRN PRN Reason: Constipation Last Admin: 06/18/16 22:26 Dose: 30 ml Metformin HCl (Glucophage) 500 mg PO BID [facility] Last Admin: 06/24/16 09:12 Dose: 500 mg Metoclopramide HCl (Reglan) 10 mg PO TID PRN PRN Reason: Nausea/Vomiting Last Admin: 06/19/16 06:05 Dose: 10 mg Nifedipine (Procardia Xl) 30 mg PO DAILY [facility] Last Admin: 06/24/16 09:13 Dose: 30 mg Ondansetron HCl (Zofran Tab) 4 mg PO Q6 PRN PRN Reason: Nausea/Vomiting Last Admin: 06/24/16 09:14 Dose: 4 mg Polyethylene Glycol (Miralax) 17 gm PO BID [facility] Last Admin: 06/24/16 09:13 Dose: 17 gm Repaglinide (Prandin) 2 mg PO DIN [facility] Last Admin: 06/23/16 17:11 Dose: 2 mg - Labs Labs: 06/23/16 05:30 06/14/16 11:55 Assessment and Plan - Assessment and Plan (Free Text) Plan: 80 yo female with history of DM2, Hypothyroidism, HTN and previous CVA with chronic LLE weakness admitted at [facility] because of a fall in the bathtub. 1. S/P CVA with chronic LLE and frequent falls continue PT/OT on Plavix, Lipitor and BP medications Physiatry consult appreciated and followed 2. UTI resolved Finished full course with antibiotics 3. Hypertension BP stable Continue Nifedipine and Lisinopril 4. Diabetes Mellitus BS controlled continue Metformin 500mg PO BID D/C REPAGLINIDE while in house, however RESUME AT HOME. 5. Hypothyroidism Continue Levothyroixine 25 mcg PO daily 6. Essential Tremors Continue Amatadine 100 mg PO BID 7. Nausea/Vomiting probably drug related or related to gastroparesis DC Primidone started Reglan 10 mg PO TID PRN GI Consult appreciated and followed added PPI daily in AM small meals 6x day 8. DVt prophylaxis on Lovenox
[2016-06-25] MEDS: Levothyroxine 25 MCG TAB PO SCH (06:24)
[2016-06-25] MEDS: Insulin Lispro (humaLOG) 100 Units/ml Inj SC SCH (07:00)
[2016-06-25 07:48] VITALS: BP 155/72; PULSE 63; TEMP 97.5; O2SAT 94
[2016-06-25] MEDS: Calcium-Vit D 250 mg-125 Units Tab UD PO SCH (08:54)
[2016-06-25] MEDS: POLYETHYLENE GLYCOL 3350 17 GM/Dose PACKET PO SCH (08:54)
[2016-06-25] MEDS: Enoxaparin 40 mg Syringe SC SCH (08:54)
[2016-06-25] MEDS: NIFEdipine 30 mg ER Tab PO SCH (08:54)
--- NOTE | 2016-06-25 10:13 | CP.PCM.DIS ---
Provider - Provider Date of Admission: 06/10/16 20:13 Attending physician: Dilia Santana DO Primary care physician: Carlos Foster MD Consults: Dr Loren Hickman Time Spent in preparation of Discharge (in minutes): 35 Hospital Course - Lab Results Lab Results: Most Recent Lab Values WBC 7.1 K/uL (4.8-10.8) 06/23/16 05:30 RBC 4.20 Mil/uL (3.80-5.20) 06/23/16 05:30 Hgb 10.3 g/dL (12.0-16.0) L 06/23/16 05:30 Hct 32.5 % (34.0-47.0) L 06/23/16 05:30 MCV 77.5 fl (81.0-99.0) L 06/23/16 05:30 MCH 24.5 pg (27.0-31.0) L 06/23/16 05:30 MCHC 31.6 g/dL (33.0-37.0) L 06/23/16 05:30 RDW 16.1 % (11.5-14.5) H 06/23/16 05:30 Plt Count 237 K/uL (130-400) 06/23/16 05:30 Sodium 134 mmol/l (132-148) 06/14/16 11:55 Potassium 4.2 MMOL/L (3.6-5.0) 06/14/16 11:55 Chloride 96 mmol/L (98-107) L 06/14/16 11:55 Carbon Dioxide 26 mmol/L (22-30) 06/14/16 11:55 Anion Gap 16 (10-20) 06/14/16 11:55 BUN 20 mg/dl (7-17) H 06/14/16 11:55 Creatinine 0.7 mg/dL (0.7-1.2) 06/14/16 11:55 Est GFR ( Amer) > 60 06/14/16 11:55 Est GFR (Non-Af Amer) > 60 06/14/16 11:55 POC Glucose (mg/dL) 83 mg/dL (65-110) 06/25/16 06:18 Random Glucose 141 mg/dL (65-105) H 06/14/16 11:55 Hemoglobin A1c 7.4 % (4.2-6.5) H 06/18/16 07:07 Calcium 9.6 mg/dL (8.4-10.2) 06/14/16 11:55 - Hospital Course Hospital Course: 80 yo female with history of CVA, HTN, DM2, Hypothyroidism and Diverticulitis admitted at [facility] because of a fall on the bathtub due to chronic LLE weakness. She was transferred to acute rehab after acute CVA was ruled out for PT/OT. Pt was also managed for UTI. Pt did well with therapy and was discharged in stable condition. 1. S/P CVA with chronic LLE and frequent falls did well with PT/OT continue Plavix, Lipitor and BP medications 2. Hypertension BP stable Continue Nifedipine and Lisinopril 3. Diabetes Mellitus BS controlled continue Metformin 500mg PO BID 4. Hypothyroidism Continue Levothyroixine 25 mcg PO daily 5. Essential Tremors Continue Amatadine 100 mg PO BID 6. Nausea/Vomiting probably drug related or related to gastroparesis appreciate consult with Dr Martinez, GI continue Pepcid and Miralax Discharge Exam - Head Exam Head Exam: ATRAUMATIC, NORMAL INSPECTION, NORMOCEPHALIC - Eye Exam Eye Exam: absent: Scleral icterus - ENT Exam ENT Exam: Mucous Membranes Moist - Respiratory Exam Respiratory Exam: absent: Wheezes, Respiratory Distress - Cardiovascular Exam Cardiovascular Exam: REGULAR RHYTHM, +S1, +S2 - GI/Abdominal Exam GI & Abdominal Exam: Soft. absent: Tenderness - Rectal Exam Rectal Exam: Deferred - Neurological Exam Neurological exam: Alert, Oriented x3 - Psychiatric Exam Psychiatric exam: Normal Affect - Skin Skin Exam: Dry, Intact Discharge Plan - Follow Up Plan Condition: GOOD Disposition: HOME/ ROUTINE Instructions: Amantadine (By mouth), Lisinopril (By mouth), Nifedipine (By mouth), Famotidine (By mouth), Levothyroxine (By mouth), Laxative, Stool Softeners (By mouth), Metformin (By mouth), Atorvastatin (By mouth), Repaglinide (By mouth), Clopidogrel (By mouth), Polyethylene Glycol 3350 (By mouth), Calcium Supplement (By mouth), Meal Planning with Diabetes Exchanges (DC ) Referrals: Carlos Foster MD [Primary Care Provider] -
== END 2016-06-25 15:03 | disposition home health service (06) | DRG 57 ==
PROVIDERS: ADMIT Student in an Organized Health Care Education/Training Program; ATTEND Student in an Organized Health Care Education/Training Program
PROC: F08Z4ZZ Home Management Treatment (ICD-10-PCS; principal; 2016-06-10)
PROC: F07L6FZ Therapeutic Exercise Treatment of Musculoskeletal System - Lower Back / Lower Extremity using Assistive, Adaptive, Supportive or Protective Equipment (ICD-10-PCS; 2016-06-10)
PROC: F07Z9FZ Gait Training/Functional Ambulation Treatment using Assistive, Adaptive, Supportive or Protective Equipment (ICD-10-PCS; 2016-06-10)
DX: I69.354 Hemiplegia and hemiparesis following cerebral infarction affecting left non-dominant side (principal); E11.649 Type 2 diabetes mellitus with hypoglycemia without coma; F03.90 Unspecified dementia, unspecified severity, without behavioral disturbance, psychotic disturbance, mood disturbance, and anxiety; N39.0 Urinary tract infection, site not specified; E03.9 Hypothyroidism, unspecified; F34.1 Dysthymic disorder; G25.0 Essential tremor; I10 Essential (primary) hypertension; I73.9 Peripheral vascular disease, unspecified; R29.6 Repeated falls; B96.20 Unspecified Escherichia coli [E. coli] as the cause of diseases classified elsewhere; R53.81 Other malaise; M20.42 Other hammer toe(s) (acquired), left foot; M20.41 Other hammer toe(s) (acquired), right foot; R11.2 Nausea with vomiting, unspecified; L85.9 Epidermal thickening, unspecified; K59.09 Other constipation